=== PATIENT | female | born 1935 | race Caucasian/White ===

== ENCOUNTER 2016-09-07 12:02 | Inpatient (IN) | payer MEDICARE, BC ==
[~2016-09-07] VITALS: Ht 167.6 cm; Wt 56.7 kg
[~2016-09-07 12:02] MED LIST: AMBIEN5 MG PO; ARICEPT5 MG PO; BENADRYL25 M1 PO; BENADRYL25 MG PO; COLACE100 MG PO; COREG6.25 MG PO; DULCOLAX10 MG/SUPP RC; HYDROCODON-ACE1 EAC6 PO; ISOSORBIDE MONO30 M1 PO; MIRALAX17 GM PO; NORCO 10/325 TA1 TA1 PO; NORCO 5/325 TAB1 TA1 PO; OMNICEF300 MG PO; OSTEO BI-FLEX1 EAC1 PO; PRILOSEC20 MG PO; PROBIOTIC PO; PROTONIX40 MG PO; PROVENTIL HFA6.7 GM INH; SENOKOT-S TABLE1 TAB PO; VITAMIN D3400 UNI1 PO; XALATAN 0.0052.5 ML EACH EYE; ZITHROMAX TRI-500 MG; ZOFRAN4 MG PO; ZPAK PO
[2016-09-07 13:19] LABS: HEMATOCRIT 38.9 % (36.0-48.0); MCH 31.3 pg (26.0-34.0); MCHC 33.4 g/dL (31.0-37.0); MCV 93.5 fL (80.0-100.0); MEAN PLATELET VOLUME 10.8 fL (7.4-10.4); PLATELET COUNT 114 10x3/uL (130-400); RBC 4.16 10x6/uL (4.00-5.40); RDW 13.2 % (11.5-14.5)
[2016-09-07 13:36] LABS: ALBUMIN 3.8 g/dL (3.4-5.0); ANION GAP 14.7 mmol/L (8-16); BILIRUBIN - TOTAL 0.91 mg/dL (0.2-1.3); CALCIUM 9.3 mg/dL (8.5-10.1); CARBON DIOXIDE 23.7 mmol/L (21.0-32.0); CREATININE - SERUM 1.3 mg/dL (0.6-1.3); POTASSIUM - SERUM 4.4 mmol/L (3.5-5.1); PROTEIN - SERUM 7.2 g/dL (6.4-8.2)
[2016-09-07 13:45] LABS: WBC 1.3 10x3/uL (4.8-10.8)
[2016-09-07 14:26] LABS: ANISOCYTOSIS OCC; HYPOCHROMASIA OCC; LYMPHOCYTES 35 % (15-50); MONOCYTES 1 % (2-11); NEUTROPHILS 62 % (40-80); PLATELET ESTIMATE NORMAL
[2016-09-07 16:02] LABS: BASOPHILS 0.5 % (0.0-2.0); EOSINOPHILS 0.5 % (0-7); HEMATOCRIT 34.2 % (36.0-48.0); HEMOGLOBIN 11.3 g/dL (12-16); IMMATURE GRANULOCYTES 0.5 % (0-5); LYMPHOCYTES 5.4 % (15-50); MCH 30.9 pg (26.0-34.0); MCV 93.4 fL (80.0-100.0); MEAN PLATELET VOLUME 11.3 fL (7.4-10.4); MONOCYTES 0.5 % (2-11); NEUTROPHILS 92.6 % (40-80); PLATELET COUNT 128 10x3/uL (130-400); RBC 3.66 10x6/uL (4.00-5.40); RDW 13.2 % (11.5-14.5)
[2016-09-07 16:05] LABS: WBC 2.1 10x3/uL (4.8-10.8)
[2016-09-07 16:49] LABS: APPEARANCE HAZY (CLEAR); BILIRUBIN NEGATIVE (NEGATIVE); COLOR YELLOW (YELLOW); GLUCOSE NEGATIVE (NEGATIVE); KETONE NEGATIVE (NEGATIVE); LEUKOCYTE ESTERASE TRACE (NEGATIVE); NITRITE NEGATIVE (NEGATIVE); PROTEIN TRACE mg/dL (NEGATIVE); RED CELLS - URINE >50 /hpf (0-5); UROBILINOGEN NORMAL (NORMAL); WHITE CELLS - URINE 0-5 /hpf (0-5)
[2016-09-07 16:50] LABS: BACTERIA MANY /hpf (NONE SEEN)
--- NOTE | 2016-09-07 18:41 | NUR ---
PATIENT ASSISTED TO BED AT THIS TIME WITH ASSIST. NO COMPLAINTS AT THIS TIME. IV INTACT. CALL LIGHT WITHIN REACH.
--- NOTE | 2016-09-07 18:45 | NUR ---
RECEIVED TO ROOM 2213 VIA STRETCHER FROM ER. A/O X3. FAMILY AT BEDSIDE. C/O HARD TO BREATHE AND LEFT SHOULDER PAIN. DR.. LEBLANC HERE AT THIS TIME.
--- NOTE | 2016-09-07 20:00 | NUR ---
PATIENT IN BED WITH EYES CLOSED. AROUSES TO VOICE. ORIENTED X4. RR EVEN AND UNLABORED. 0 S/S OF DISTRESS BUT WEAK. IV TO RIGHT AC SL WITH NO REDNESS OR SWELLING. STATES PAIN IS A 5/10. AT BEDSIDE. SRX2. BED LOW. CALL LIGHT WITHIN REACH.
--- NOTE | 2016-09-07 23:05 | NUR ---
INITIATED FLUIDS AND IV ANTIBIOTICS PER ORDER. ADMIT COMPLETE. PAGED DR. ZUNIGA FOR NORCO AND MELATONIN PER PATIENT REQUEST.
[2016-09-07 23:32] VITALS: BP 69/34; BMI 19.5
[2016-09-08] VITALS (46 sets, daily range): BP systolic 63–131; BP diastolic 34–93; Ht 167.6 cm; Wt 56.7 kg
--- NOTE | 2016-09-08 00:30 | NUR ---
NORCO GIVEN FOR PAIN PER TELEPHONE ORDER. WAITING ON HEAD RESIDENT TO PULL MELATONIN. PATIENT STATED THAT SHE DOES NOT CARE TO HAVE IT IF SHE IS ASLEEP WHEN IT GETS PULLED.
--- NOTE | 2016-09-08 04:00 | NUR ---
MELATONIN NOT GIVEN. PATIENT SLEEPING WITH NO DISTRESS NOTED.
--- NOTE | 2016-09-08 05:30 | NUR ---
SITED SECOND IV TO RIGHT FA BECAUSE PATIENT NPO AND MULTIPLE ELECTROLYTES NEED TO BE REPLACED.
[2016-09-08 06:04] LABS: BILIRUBIN - TOTAL 0.59 mg/dL (0.2-1.3); CALCIUM 7.9 mg/dL (8.5-10.1); CARBON DIOXIDE 22.4 mmol/L (21.0-32.0); MAGNESIUM - SERUM 1.4 mg/dL (1.8-2.4); PHOSPHOROUS 2.4 mg/dL (2.5-4.9); PROTEIN - SERUM 5.5 g/dL (6.4-8.2)
[2016-09-08 06:05] LABS: ALBUMIN 2.7 g/dL (3.4-5.0); ANION GAP 14.1 mmol/L (8-16); CREATININE - SERUM 1.9 mg/dL (0.6-1.3); POTASSIUM - SERUM 3.5 mmol/L (3.5-5.1)
[2016-09-08 06:08] LABS: BASOPHILS 0 % (0.0-2.0); EOSINOPHILS 0 % (0-7); HEMATOCRIT 31.3 % (36.0-48.0); HEMOGLOBIN 10.4 g/dL (12-16); IMMATURE GRANULOCYTES 0.4 % (0-5); LYMPHOCYTES 2.7 % (15-50); MCH 30.8 pg (26.0-34.0); MCHC 33.2 g/dL (31.0-37.0); MCV 92.6 fL (80.0-100.0); MEAN PLATELET VOLUME 11.7 fL (7.4-10.4); MONOCYTES 5.5 % (2-11); NEUTROPHILS 91.4 % (40-80); RBC 3.38 10x6/uL (4.00-5.40); RDW 13.7 % (11.5-14.5)
[2016-09-08 06:12] LABS: PLATELET COUNT 100 10x3/uL (130-400); WBC 16.7 10x3/uL (4.8-10.8)
--- NOTE | 2016-09-08 07:15 | NUR ---
UP IN CHAIR PER RACHAEL CRUZ AT THIS TIME. AT BEDSIDE. PT ALERT TO SELF, PLACE AND SITUATION. RESPIRATIONS EVEN AND NON LABORED. ASSISTED PT TO BEDSIDE COMMODE WHERE SHE HAD A MEDIUM SIZE BM WITHOUT DIFFICULTY. GAIT IS VERY WEAK AND UNSTEADY AND REQUIRES 2 PERSON ASSIST FOR TRANSFER. APPLIED OXYGEN 2L FOR OXYGEN SATURATION OF 89% ON ROOM AIR. OXYGEN SATURATION OSCAR TO 95% ON 2L VIA NC.
--- NOTE | 2016-09-08 07:45 | NUR ---
DR LEBLANC ROUNDING AT THIS TIME. ASKED HIM IF HE WANTED TO CONTINUE NEUTROPENIC PRECAUTIONS BECAUSE WHITE COUNT WENT FROM 1.3 ON ADMISSION TO 16.7 TODAY. HE STATED TO WAIT UNTIL SHE IS SEEN BY INFECTIOUS DISEASE. WAS ASKED BY DR LEBLANC HOW PT WAS DOING AND I EXPLAINED TO HIM THAT I HAD NOT HAD A CHANCE TO REVIEW THE CHART OTHER THAN LAB WORK, SO I WAS NOT EXACTLY SURE BUT JUST BY ASSESSMENT PT APPEARS VERY SICK AND IS COMPLAINING OF DIZZINESS. ALSO EXPLAINED THAT I HAD TO PLACE THE PATIENT ON 2L VIA NC. WAS ASKED IF PT HAS HAD HER CT AND I TOLD HIM ONCE AGAIN THAT I HAD YET TO HAVE A CHANCE TO LOOK THROUGHT THE CHART.
--- NOTE | 2016-09-08 08:19 | HP ---
PATIENT: YAMINI ZHAO MEDICAL RECORD: [id number] ACCOUNT: [id number] LOCATION:D.MS [id number] : 36 ADMISSION DATE: 09/07/16 HISTORY AND PHYSICAL EXAMINATION HISTORY OF PRESENT ILLNESS: An 81-year-old female presented to the Emergency Room with nausea and vomiting. She spiked a temperature greater than 101 on the ER. She was also found to be neutropenic. She has a history of episodic pancytopenia, also, past medical history of pulmonary mycobacterial infection and aspergillosis. She has been followed in the past by electric melt operator in [place]. She has also had a previous lung biopsy, also history of GERD, pneumonia, back surgery, recent fall with shoulder fracture, hysterectomy, left hip fracture, mitral valve prolapse, heart disease and dementia. CURRENT MEDICATIONS: Aricept 5 mg daily, Coreg 6.25 mg b.i.d., isosorbide mononitrate 30 mg daily, Xalatan eyedrops, Prilosec 20 mg daily, vitamin D 400 units daily, chondroitin and glucosamine. ALLERGIES: REPORTED NIACIN, ERYTHROMYCIN, KETOROLAC, ____. REVIEW OF SYSTEMS: GENERAL: No known change in weight or appetite. She does admit to acute nausea and vomiting with her presentation to the Emergency Room today. HEENT: No cephalgia, visual changes, tinnitus, epistaxis or dysphagia. CARDIOVASCULAR: Denies chest pain and denies palpitations. PULMONARY: Denies hemoptysis and denies night sweats. GASTROINTESTINAL: Denies hematemesis, hematochezia or melena. She does admit to acute nausea and vomiting. GENITOURINARY: Admits dysuria. MUSCULOSKELETAL: No acute changes. ENDOCRINE: Denies polyuria, polydipsia, or polyphagia. PHYSICAL EXAMINATION: VITAL SIGNS: Temp 97.8. Again, reported a temperature spike of 101+ in the Emergency Room, heart rate 67, respirations 18, blood pressure ____, O2 sats 100%. GENERAL: Alert, oriented, appears comfortable at this time. HEENT: Head: Normocephalic and atraumatic. Eyes: Pupils equal, round, reactive to light and accommodation. Extraocular muscles intact. Conjunctiva was not injected. Ears: Canals patent, TMs are intact. Nose: Nares patent without drainage. Throat: No erythema, no exudates. NECK: Supple. No lymphadenopathy, no JVD. HEART: Regular rate and rhythm. No S3, S4, no rub. LUNGS: Clear to auscultation bilaterally. Breathing is nonlabored. ABDOMEN: Soft and nontender. Bowel sounds all 4 quadrants. EXTREMITIES: Present times 4, no edema. NEUROLOGIC: No appreciable focal deficits. LABORATORY DATA: Lactate dehydrogenase 268. Urinalysis: Yellow, hazy, trace protein, 1+ blood, trace leukocyte esterase, rbc's greater than 50 per high power field, many bacteria. Culture pending. CBC: White count 2.1, hemoglobin 11.3, hematocrit 34.2, platelets 128 and neutrophils 92.6%. Blood cultures pending. This was a repeat CBC, the original one showed a white count of 1.3. Chemistry shows sodium 142, potassium 4.4, chloride 108, bicarb 23.7, BUN 27, creatinine 1.3 and glucose 111. AST 26 and ALT 21. Chest x-ray: Bilateral HISTORY AND PHYSICAL [id number] YAMINI ZHAO lower lobe airspace disease suggestive of atelectasis versus pneumonia and emphysema. ASSESSMENT AND PLAN: 1. Febrile neutropenia. The patient is admitted, reverse isolation, we will consult pulmonology and infectious disease and start IV antibiotics empirically. 2. Dysuria. Antibiotics as above. Urine culture. 3. Nausea and vomiting. IV fluids and Zofran p.r.n. 4. History of aspergillosis and Mycobacterium. Pulmonology is consulted. We will also obtain CT of the chest with IV contrast. TRANSINT:[id number] Voice Confirmation ID: [id number] DOCUMENT ID: [id number] ROBINSON LEBLANC DO at 0819 CC: [id number] DICTATION DATE: 09/07/161900 INFORMATICS PHYSICIAN LIAISON: 09/07/162044 ADM IN [address] [place] [address]
--- NOTE | 2016-09-08 08:55 | NUR ---
SCHEDULED MEDICATIONS ADMINISTERED AT THIS TIME. ELECTROLYTE PROTOCOL INITIATED PER ORDER. ASSESSMENT PERFORMED PER FLOWSHEET. COREG AND IMDUR HELD FOR BP, SEE FLOWSHEET. PT IS VERY WEAK AND COMPLAINING OF DIZZINESS. PT'S LEGS ELEVATED IN RECLINER CHAIR AT THIS TIME. WILL NOTIFY DR LEBLANC.
--- NOTE | 2016-09-08 09:30 | NUR ---
DR LEBLANC NOTIFIED ABOUT CLINICAL FINDINGS BY TAYLOR NORIEGA RN. NEW ORDERS GIVEN.
--- NOTE | 2016-09-08 10:18 | NUR ---
1L BOLUS OF NS INITIATED AT THIS TIME. BP 76/43 AND PULSE 95 AND REGULAR. PT IS ALERT AND ORIENTED TO SELF AND PLACE. C/O OF LIGHTHEADEDNESS AND WEAKNESS. PT ASSISTED BACK TO BED X3 ASSIST. PT'S GAIT VERY UNSTEADY. LYING SUPINE WITH FOOT OF BED ELEVATED HIGH IT GOES. 20G IV SITED TO PT'S LEFT WRIST. 22G IV X2 REMAIN PATENT TO PT'S RIGHT WRIST AND AC. REMAINS IN ISOLATION PER PHYSICIAN. WILL REMAIN WITH PT.
--- NOTE | 2016-09-08 11:30 | NUR ---
PT RECIEVED TO ICU BP 88/60. TEMP 98.1. LACTID ACID 3.3 DR LEBLANC CALLED NEW ORDERS OBTAINED. DR HOROWITZ CONSULTED. DR RICO CONSULTED FOR CVL PLACEMENT. PT VOICES NO CO AT TIME.
[2016-09-08 12:10] LABS: CKMB 2.2 U/L (0.0-3.6)
[2016-09-08 12:11] LABS: CREATINE KINASE 863 UL (21-215); TROPONIN-I 0.155 ng/mL (0.000-0.060)
--- NOTE | 2016-09-08 19:00 | NUR ---
REPORT REC'D, ASSUMED PT'S CARE. ASSESSMENT COMPLETED PER FLOW SHEETS. PT A/O X2, CONFUSED WITH TIME. ORIENTED TO TIME. CM SHOWS SR WITH HR AT 84. LUNG SOUNDS CLEAR DIMINISHED TO LLB, UNLABORED.O2SAT 96% ON 4L VIA NC. RT SC CVL INTACT, CLEAN AND DRY INFUSING IV FLUIDS PER ORDER. LEVOPHED TITRATED TO 10MCG PER ORDER. ORDOÑEZ INTACT BY GRAVITY WITH LIGHT YELLOW DRAINAGE TO BAG. PPP. REPOSITIONED FOR COMFORT. CALL LIGHT IN REACH. HOB UP. SIDE RAILS UP X2. CONT TO MONITOR.
--- NOTE | 2016-09-08 21:00 | NUR ---
PT OOB, GIVES SELF BATH AND SHAVE AND ORAL CARE. DENIES ANY DISCOMFORT AT THIS TIME. VSS. CALL LIGHT IN REACH. CPOC.
--- NOTE | 2016-09-08 21:00 | NUR ---
AT BEDSIDE. UPDATED.
--- NOTE | 2016-09-08 23:00 | NUR ---
REASSESSMENT COMPLETED PER FLOW SHEETS. NO ACUTE CHANGES NOTED ON PT'S STATUS. TITRATED LEVOPHED TO 8MCG/MIN PER ORDER FOR SBP> 90. REPOSITIONED FOR COMFORT. NO COMPLAINTS AT THIS TIME. CALL LIGHT IN REACH. CPOC.
[2016-09-09] VITALS (43 sets, daily range): BP systolic 99–145; BP diastolic 52–92
--- NOTE | 2016-09-09 01:00 | NUR ---
PT BATH GIVEN, LINEN CANGHED, SKIN CARE PROVIDED, ORDOÑEZ CARE.REPOSITIONED FOR COMFORT. PILLOWS IN USE FOR SUPPORT. CALL LIGHT IN REACH. CPOC
[2016-09-09 05:37] LABS: BASOPHILS 0.1 % (0.0-2.0); EOSINOPHILS 0 % (0-7); HEMOGLOBIN 9.7 g/dL (12-16); IMMATURE GRANULOCYTES 7.4 % (0-5); LYMPHOCYTES 5.3 % (15-50); MCH 30.8 pg (26.0-34.0); MCHC 33.4 g/dL (31.0-37.0); MCV 92.1 fL (80.0-100.0); MEAN PLATELET VOLUME 11.7 fL (7.4-10.4); MONOCYTES 4.1 % (2-11); NEUTROPHILS 83.1 % (40-80); PLATELET COUNT 82 10x3/uL (130-400); RBC 3.15 10x6/uL (4.00-5.40); RDW 13.6 % (11.5-14.5); WBC 19.1 10x3/uL (4.8-10.8)
[2016-09-09 05:44] LABS: ALBUMIN 2.3 g/dL (3.4-5.0); ANION GAP 11.6 mmol/L (8-16); BILIRUBIN - TOTAL 0.56 mg/dL (0.2-1.3); CALCIUM 7.4 mg/dL (8.5-10.1); CARBON DIOXIDE 25.7 mmol/L (21.0-32.0); MAGNESIUM - SERUM 1.4 mg/dL (1.8-2.4); POTASSIUM - SERUM 3.3 mmol/L (3.5-5.1)
[2016-09-09 05:52] LABS: CREATININE - SERUM 1.2 mg/dL (0.6-1.3)
[2016-09-09 06:24] LABS: PLATELET ESTIMATE DECREASED
--- NOTE | 2016-09-09 07:05 | NUR ---
REPORT RECEIVED. PATIENT IN SEMIFOWLERS POSITION, EYES CLOSED, OPENED EYES WHEN SPOKEN TO. ASSESSMENT COMPLETED AT THIS TIME. C/O BEING COLD, WARM BLANKET OBTAINED FOR HER AND HEATER TURNED UP IN ROOM. ALSO C/O HOW UNCOMFORTABLE THE BED WAS. OFFERED TO ASSIST WITH CHANGING POSITIONS, PATIENT WAS TURNED TO THE LEFT, NOW ON BACK. STATED THAT THE CHANGE IN POSITION DID NOT HELP ANY BUT DENIED CHANGING POSITIONS AGAIN OR GETTING UP TO A CHAIR. CONTACT ISOLATION IS BEING OBSERVED.
--- NOTE | 2016-09-09 09:01 | NUR ---
GOT PATIENT UP TO BSC AND TO SIT IN CHAIR FOR A BIT. 2 LARGE LOOSE STOOLS DURING THIS PROCESS. PATIENT FELT SHE WAS TO WEAK TO STAY UP. PUT BACK IN BED. CVP LINE ZEROED. READING ZERO. 500 ML BOLUS STARTED.
[2016-09-09 09:04] LABS: CKMB 0.8 U/L (0.0-3.6); TROPONIN-I 0.233 ng/mL (0.000-0.060)
--- NOTE | 2016-09-09 09:35 | NUR ---
PATIENT HAS HAD 5 STOOLS SINCE 0800 THIS MORNING. SPOKE WITH DR LEBLANC, NEW ORDERS RECEIVED.
--- NOTE | 2016-09-09 09:41 | NUR ---
Is the patient Alert and Oriented? Yes 0 * How many steps to enter\exit or inside your home? 1 0 * PCP DR. OSBORNE 0 * Pharmacy [facility] [address] 0 * Preadmission Environment Home with Family 0 * ADLs Independent 0 * Equipment Cane Rolling Walker Wheelchair 0 * Other Equipment PATIENT STATES SHE HAS ABOVE EQUIPMENT EVEN THOUGH SHE DOES NOT USE THEM 0 * List name and contact numbers for known caregivers / representatives who currently or will assist patient after discharge: SPOUSE: VIOLET [phone] 0 * Community resources currently utilized None 0 * Additional services required to return to the preadmission environment? No 0 * Can the patient safely return to the preadmission environment? Yes 0 * Has this patient been hospitalized within the prior 30 days at any hospital? No 0 PATIENT IS AWAKE AND ALERT. SHE STATES SHE LIVES AT HOME WITH HER , VIOLET. SHE STATES HE ASSIST HER NEEDED AT HOME BUT THAT SHE IS INDEPENDENT. PATIENT STATES HE WILL BE AVAILABLE TO DRIVE HER HOME AT DISCHARGE. HER PCP IS DR. OSBORNE. SHE GETS HER MEDS FROM [facility]. PATIENT STATES IN 2014 SHE HAD BACK SURGERY AND SERVICES FROM [facility]. PATIENT STATES SHE HAS A WALKER, CANE AND W/C BUT DOES NOT USE THEM. SHE STATES THERE IS ONLY 1 STEP TO ENTER HER HOME. NO DISCHARGE NEEDS IDENTIFIED AT THIS TIME. PATIENT'S PREFERENCE IS TO RETURN HOME AT DISCHARGE. SHE MAY BENEFIT FROM HOME HEALTH.
--- NOTE | 2016-09-09 10:00 | NUR ---
PATIENTS CVP BOUNCING BETWEEN 5 AND 8. WILL RUN ANOTHER BOLUS IF IF REMAINS BELOW 8 PER ORDERS.
--- NOTE | 2016-09-09 10:20 | NUR ---
Nutrition follow-up: Diet: Clear liquids Wt: 121# Labs reviewed Multiple BM's If diet unable to advance past clears within 24 hours, nutrition support will need to begin. RDN following.
--- NOTE | 2016-09-09 10:52 | NUR ---
CVP DOWN TO 3. SECOND BOLUS OF NORMAL SALINE STARTED PER ORDERS.
--- NOTE | 2016-09-09 11:11 | CN ---
PATIENT NAME:YAMINI CHACKO MEDICAL RECORD: [id number] : 37 LOCATION:[id number] ADMIT DATE: 09/07/16 ACCOUNT: [id number] CONSULTING PHYSICIAN: LEDY SIERRA MD REFERRING PHYSICIAN: ROBINSON LEBLANC DO DATE OF CONSULTATION: 09/08/2016 Cardiology Consultation DIAGNOSES: 1. Elevated troponin. 2. Septic shock. HISTORY OF PRESENT ILLNESS: Mrs. Chacko has no previous cardiac history. She presents with septic shock, found to have elevated troponin. She has no chest pain, no chest discomfort. She has history of a shoulder fracture, that is the only discomfort she has, is around the shoulder area, but this is old. Her systolic blood pressure is in the 60s-70s despite pressors. PHYSICAL EXAMINATION: GENERAL APPEARANCE: Well-nourished, well-developed, appears stated age. Level of distress, comfortable. PSYCHIATRIC: Mental status, alert, normal affect. Orientation, oriented to time, place and person. EYES: Lids and conjunctiva, noninjected. No discharge, no pallor. ENT: Lips, teeth, gums, normal dentition. Oropharynx, no cyanosis, no pallor. NECK: Carotid arteries, bilateral normal upstroke, no bruits, no thrills. JUGULAR VEINS: No jugular venous pressure or distention. CERVICAL LYMPH NODES: Nontender, nonenlarged. THYROID: Not enlarged. Nontender. No nodules. LUNGS: Respiratory effort, unlabored. CHEST: Normal curvature. No thoracic deformity. No chest wall tenderness. Percussion, resonant. Auscultation, clear. No wheezes, no rales, no rhonchi. CARDIOVASCULAR: Precordial exam, nondisplaced. No heaves or pericardial thrills. Rate and rhythm, regular. Heart sounds, normal S1, normal S2. No S3, no gallop, no rub. Systolic murmur, not heard. Diastolic murmur, not heard. EXTREMITIES: No cyanosis, no edema. Peripheral pulses, full and equal in all extremities, except as noted. No bruits appreciated. ABDOMEN: Soft, nondistended. Normal aorta. No bruit. Nontender. No masses. Liver, nontender, no hepatomegaly. Spleen, nontender, no splenomegaly. MUSCULOSKELETAL: No joint tenderness. No joint swelling. No erythema. NEUROLOGICAL: Normal gait, normal strength, normal tone. SKIN: Warm and dry. REVIEW OF SYSTEMS: The patient reports easy bruising but reports no swollen glands. The patient reports no fever, no night sweats, no significant weight gain, no significant weight loss. No significant exercise tolerance. The patient reports no dry eyes, no irritation, no vision change. Patient reports no difficulty hearing and no ear pain. Patient reports no frequent nose bleeds or nose and sinus problems. Patient reports on arm pain on exertion. No shortness of breath while lying down. No history of heart murmur. Patient reports no cough, no wheezing or coughing up blood. Patient reports no abdominal pain, no vomiting. Normal appetite. No diarrhea and not vomiting blood. No nausea and no constipation. Patient reports no incontinence. No difficulty urinating. No hematuria. No increased frequency. Patient reports CONSULT REPORT [id number] YAMINI CHACKO no muscle aches. No weakness, no arthralgias, no back pain. No swelling of the extremities. Patient reports no abnormal mole, no jaundice, no rashes. Reports no loss of consciousness. No weakness and no numbness. No seizures, dizziness, or headaches. The patient reports no depression, no sleep disturbance, feeling safe in a relationship and no alcohol abuse. Patient reports on fatigue. Reports no runny nose or sinus pressure. No itching, no hives, and no frequent sneezing. OVERALL IMPRESSION: Most likely elevated troponin is secondary to demand ischemia from the sepsis and the hypotension. At this time, due to her low blood pressure, no cardiac treatment is necessary. We will get an echocardiogram in the near future. No other cardiac workup is necessary. TRANSINT:[id number] Voice Confirmation ID: [id number] DOCUMENT ID: [id number] LEDY SIERRA MD at 1111 CC: [id number] DICTATION DATE: 09/08/16 1516 CRM MARKETING SPECIALIST: 09/08/16 1527 ADM IN [id number] [place] [address]
--- NOTE | 2016-09-09 11:32 | NUR ---
PATIENT IN SEMIFOWLERS POSITION WITH EYES CLOSED. NO VISUAL CUES OF DISTRESS NOTED. SPOUSE IS ASLEEP IN THE CHAIR AT BEDSIDE. SECONDARY TO SPOUSES DEMENTIA, HE IS BEING ALLOWED TO REMAIN AT BEDSIDE.
--- NOTE | 2016-09-09 11:38 | NUR ---
PATIENT REQUESTING SOMETHING WITH A LITTLE SUBSTANCE, BUT NOT HEAVY TO EAT. SPOKE WITH DR LEBLANC AND NEW ORDER RECEIVED FOR FULL LIQUID DIET.
--- NOTE | 2016-09-09 12:12 | NUR ---
THIRD BOLUS STARTED SECONDARY TO CVP REMAINING AROUND 4. WILL CONTINUE TO MONITOR.
--- NOTE | 2016-09-09 13:48 | NUR ---
PATIENTS CVP IS 5, FOURTH BOLUS STARTED.
--- NOTE | 2016-09-09 13:49 | NUR ---
PATIENTS LUNGS REMAIN CLEAR. THERE IS NO EDEMA NOTED. WITH AMOUNT OF BOLUSES, WILL KEEP AN EYE ON THIS.
--- NOTE | 2016-09-09 14:01 | NUR ---
SPOKE WITH DR HOROWITZ ABOUT PATIENT'S CVP'S IN REGARDS TO BOLUSES. HE QUESTIONED TO WETHER HER B/P AND HR HAVE BEEN STABLE. IT WAS EXPLAINED THAT YES THEY HAVE BEEN . AT THIS TIME HE SAID THAT THERE WAS NO NEED TO CONTINUE BOLUSING PATIENT TO JUST KEEP THE MAINTANCE FLUIDS GOING. PATIENTS BOLUS WAS STOPPED. PATIENT WAS ALSO CLEANED UP FOR THE 8TH TIME FROM WATERY STOOL. WILL DISCUSS THIS WITH DR YORK.
--- NOTE | 2016-09-09 15:52 | NUR ---
PATIENT IS SUPINE WITH EYES CLOSED, NO VISUAL CUES OF DISTRESS NOTED. SPOUSE IS SLEEPING IN CHAIR AT BEDSIDE. CALL LIGHT IN REACH. WILL CONINTUE TO MONITOR.
--- NOTE | 2016-09-09 18:09 | NUR ---
PATIENTS STOOL HAS SLOWED DOWN CONSIDERABLY. SHE IS ABLE TO ASK FOR THE BEDPAN NOW AND HOLD IT UNTIL SHE IS ON THE BEDPAN. SPOUSE REMAINS IN THE ROOM. HIS DAUGHTER SHOULD BE HERE SHORTLY TO TAKE HIM HOME. PATIENT DENIES NEEDS.
--- NOTE | 2016-09-09 19:10 | NUR ---
ASSESSMENT COMPLETE, SEE FLOWSHEET FOR DETAILS. CVP ZEROED. PATIENT HAD SMALL LIQUID BOWEL MOVEMENT. LINENS CHANGED.
--- NOTE | 2016-09-09 20:30 | NUR ---
PATIENT HAD SMALL LIQUID BOWEL MOVEMENT. LINENS CHANGED.
--- NOTE | 2016-09-09 23:00 | NUR ---
REASSESSMENT COMPLETE. NO CHANGES. LINENS CHANGED.
[2016-09-10] VITALS (22 sets, daily range): BP systolic 112–154; BP diastolic 68–101
--- NOTE | 2016-09-10 03:00 | NUR ---
REASSESSMENT COMPLETE. NO CHANGES. PATIENT HAVING SEVERAL SMALL BOWEL MOVEMENTS PER HOUR. LINENS CHANGED.
[2016-09-10 05:26] LABS: BASOPHILS 0.1 % (0.0-2.0); EOSINOPHILS 0.5 % (0-7); HEMATOCRIT 30.4 % (36.0-48.0); HEMOGLOBIN 10.3 g/dL (12-16); IMMATURE GRANULOCYTES 0.5 % (0-5); LYMPHOCYTES 5.9 % (15-50); MCHC 33.9 g/dL (31.0-37.0); MCV 91.6 fL (80.0-100.0); MEAN PLATELET VOLUME 12.7 fL (7.4-10.4); MONOCYTES 3.2 % (2-11); NEUTROPHILS 89.8 % (40-80); PLATELET COUNT 65 10x3/uL (130-400); RBC 3.32 10x6/uL (4.00-5.40); RDW 13.5 % (11.5-14.5); WBC 17.1 10x3/uL (4.8-10.8)
[2016-09-10 05:39] LABS: CALCIUM 7.4 mg/dL (8.5-10.1); CARBON DIOXIDE 27.1 mmol/L (21.0-32.0); MAGNESIUM - SERUM 1.4 mg/dL (1.8-2.4); PHOSPHOROUS 1.7 mg/dL (2.5-4.9); POTASSIUM - SERUM 3.1 mmol/L (3.5-5.1)
[2016-09-10 05:42] LABS: INR 1.21 (0.85-1.17); PROTIME 15.2 SECONDS (11.6-15.0)
--- NOTE | 2016-09-10 19:35 | NUR ---
SHIFT ASSESSMENT COMPLETE AT THIS TIME, PATIENT IS ALERT AND ORIENTED. DENIES ANY PAIN AT THIS TIME. NC @ 2L WITH O2 SAT IN HIGH 90'S. BREATHING IS EVEN AND NONLABORED. S1S2 NOTED. BOWEL SOUNDS HYPERACTIVE, PATIENT HAVING LIQUID STOOLS. ORDOÑEZ DRAINING CLEAR YELLOW URINE. SEE FLOWSHEET FOR MORE DETAILS.
--- NOTE | 2016-09-10 19:40 | NUR ---
0715-RECIEVED AWAKE AND CRYING STATING-MY CHEST HAS HURT ALL NIGHT AND I CAN'T BREATHE AND I NEED TO BE CLEANED UP-DR OSBORNE NOTIFIED OF CHEST PAIN AND DIFFICULTY BREATHING-HOME MED COREG GIVEN ORDERED-O2 SAT 97%-12 LEAD EKG ORDERED DIRECTED 0800-DR NUNEZ IN UNIT AND INFORMED OF PT COMPLAINT-12 LEAD EKG GIVEN-NO FURTHER ORDERS AT THIS TIME 0900-HOME MED IMDUR RESTARTED-DR OSBORNE AT [facility]-CONFIRMED WITH POT ROOM SUPERVISOR-DOES WANT AN AIROVERLAY ORDERED -NINO-DAUGHTER AND AT [facility] AND SPOKE WITH DR OSBORNE 1130- LEFT UNIT-PT INCONTINENT OF LIQUIED STOOL-SKIN CARE DONE AND INTACT- 1330-DR HOROWITZ IN UNIT -ORDER RECIEVED--D/C BICARB DRIPP AND DECREASE PRIMARY FLOW RATE TO 50ML/H-REMAINS ON 2L 1400-AIR OVERLAY PLACED ON BED -TOLERATED WELL BY PT 1530- AT [facility]- 1630-DR HOLM AT [facility]-
--- NOTE | 2016-09-10 21:00 | NUR ---
MEDS GIVEN, PATIENT COMPLAINING OF "SPLITTING HEADACHE" TYLENOL GIVEN.
--- NOTE | 2016-09-10 21:30 | NUR ---
PATIENT HAD SMALL LIQUID BOWEL MOVEMENT. SHEETS/GOWN CHANGED. PATIENT CLEANED UP.
--- NOTE | 2016-09-10 23:00 | NUR ---
REASSESSMENT COMPLETE. NO ACUTE CHANGES. PATIENT HAD SMALL BOWEL MOVENT. LINENS CHANGED AND PT CLEANED.
[2016-09-11] VITALS (24 sets, daily range): BP systolic 104–159; BP diastolic 72–103
--- NOTE | 2016-09-11 | NUR ---
PATIENT HAD SMALL WATERY BM. PT CLEANED AND LINEN CHANGED.
--- NOTE | 2016-09-11 01:30 | NUR ---
PATIENT HAD ANOTHER SMALL WATERY BM. LINENS CHANGED AND PT CLEANED.
--- NOTE | 2016-09-11 04:00 | NUR ---
LINENS CHANGED, PATIENT CLEANED AND TURNED. VSS. WILL CONTINUE TO MONITOR.
--- NOTE | 2016-09-11 05:30 | NUR ---
PT DENIES NEED. VSS. WILL CONTINUE TO MONITOR.
[2016-09-11 05:40] LABS: BASOPHILS 0.2 % (0.0-2.0); EOSINOPHILS 2.1 % (0-7); HEMATOCRIT 28.9 % (36.0-48.0); HEMOGLOBIN 9.8 g/dL (12-16); IMMATURE GRANULOCYTES 0.4 % (0-5); LYMPHOCYTES 10.7 % (15-50); MCH 30.6 pg (26.0-34.0); MCHC 33.9 g/dL (31.0-37.0); MCV 90.3 fL (80.0-100.0); MONOCYTES 6.6 % (2-11); RDW 13.3 % (11.5-14.5)
[2016-09-11 05:41] LABS: PLATELET COUNT 85 10x3/uL (130-400); WBC 10.7 10x3/uL (4.8-10.8)
[2016-09-11 05:57] LABS: ALBUMIN 2.1 g/dL (3.4-5.0); ANION GAP 8.8 mmol/L (8-16); BILIRUBIN - TOTAL 0.7 mg/dL (0.2-1.3); CALCIUM 7.3 mg/dL (8.5-10.1); CARBON DIOXIDE 26.5 mmol/L (21.0-32.0); CREATININE - SERUM 0.8 mg/dL (0.6-1.3); MAGNESIUM - SERUM 1.5 mg/dL (1.8-2.4); PHOSPHOROUS 1.7 mg/dL (2.5-4.9); POTASSIUM - SERUM 3.3 mmol/L (3.5-5.1); PROTEIN - SERUM 4.6 g/dL (6.4-8.2)
--- NOTE | 2016-09-11 14:40 | NUR ---
Nutrition follow-up: Received verbal order from Dr. Gibbs to begin TPN today due to pt with continued profuse diarrhea, nausea, distended abdomen with C.Diff. Labs reviewed. Order sent to lab for D25W,4.25%AA @ 40 ml/hr. RDN will evaluate pt 09/12 and adjust TPN if needed. Thank you for the consult.
--- NOTE | 2016-09-11 19:30 | NUR ---
ASSESSMENT COMPLETE. S1S2. RR CLEAR BILATERALLY IN UPPER LOBES; DIMINISHED BILATERALLY IN LOWER LOBES. RADIAL/PEDAL PULSES PALPATED. AAO. RIGHT CVL; PATENT. NSR SHOWING ON MONITOR. PT ON AIR OVERLAY. ORDOÑEZ IN PLACE; ADELSO URINE IN COLLECTION.
--- NOTE | 2016-09-11 20:31 | NUR ---
0715-RECIEVED AWAKE AND ALERT AIR BREAKER OPERATOR LIGHT-STATING NAUSEATED ALL CPDZN-[id number] TELLING ANY ONE-BREAKFEST TRAY HELD TIL FURTHER ASSESSED BY DR OSBORNE 0830 0930-REQUESTING MEAL-STATED STILL NAUSEATED-INFORMED PT WILL WAIT ON MD TO ASSESS 1030-DR OSBORNE AT BEDSIDE-INFORMED OF CONSTANT HEADACHE AND NECK [id number]-[id number] OF NAUSEA-HELD BREAK FEST TRAY - AT BEDSIDE- 1130- 1230-DR HOLM AT BEDSIDE-INFORMED OF DR OSBORNE REQUEST FOR TPN NUTRITION 1300-DR OSBORNE INFORMED OF SAME-AND REQUESTED TO HAVE DIETITION ORDER TPN -Aaron GREENCAMPOS NOTIFIED OF SAME 1600-TPN STARTED ORDERED -ZOFRAN GTT STARTED ORDERED AND PT ASLEEP
--- NOTE | 2016-09-11 21:15 | NUR ---
PT RESTING; EYES CLOSED. NO DISTRESS NOTED. CALL LIGHT IN REACH. WILL CONTINUE TO MONITOR.
--- NOTE | 2016-09-11 23:00 | NUR ---
REASSESSMENT COMPLETE. NO CHANGES FROM PREVIOUS ASSESSMENT. SEE FLOW SHEET FOR DETAILS.
[2016-09-12] VITALS (24 sets, daily range): BP systolic 116–162; BP diastolic 66–94
--- NOTE | 2016-09-12 01:00 | NUR ---
PT REFUSED TO BE TURNED ON SIDE, STATING "NOT COMFORTABLE, CANNOT SLEEP ON SIDE."
--- NOTE | 2016-09-12 03:00 | NUR ---
REASSESSMENT COMPLETE. NO CHANGES FROM PREVIOUS ASSESSMENT. SEE FLOW SHEET FOR DETAILS.
--- NOTE | 2016-09-12 04:00 | NUR ---
I/O COLLECTED. LABS DRAWN.
[2016-09-12 05:09] LABS: BASOPHILS 0.2 % (0.0-2.0); EOSINOPHILS 3.5 % (0-7); HEMATOCRIT 28.5 % (36.0-48.0); HEMOGLOBIN 9.8 g/dL (12-16); IMMATURE GRANULOCYTES 0.2 % (0-5); LYMPHOCYTES 14.9 % (15-50); MCH 30.9 pg (26.0-34.0); MCHC 34.4 g/dL (31.0-37.0); MCV 89.9 fL (80.0-100.0); MONOCYTES 12.6 % (2-11); NEUTROPHILS 68.6 % (40-80); PLATELET COUNT 95 10x3/uL (130-400); RBC 3.17 10x6/uL (4.00-5.40); RDW 13.6 % (11.5-14.5)
[2016-09-12 05:11] LABS: WBC 6.4 10x3/uL (4.8-10.8)
[2016-09-12 05:27] LABS: ALBUMIN 2.6 g/dL (3.4-5.0); ANION GAP 10.1 mmol/L (8-16); BILIRUBIN - TOTAL 0.6 mg/dL (0.2-1.3); CALCIUM 7.4 mg/dL (8.5-10.1); CARBON DIOXIDE 26.2 mmol/L (21.0-32.0); CREATININE - SERUM 0.8 mg/dL (0.6-1.3); MAGNESIUM - SERUM 1.8 mg/dL (1.8-2.4); PHOSPHOROUS 2.1 mg/dL (2.5-4.9); POTASSIUM - SERUM 3.3 mmol/L (3.5-5.1); PRE-ALBUMIN 12.6 mg/dL (18.0-35.7); PROTEIN - SERUM 5.2 g/dL (6.4-8.2)
--- NOTE | 2016-09-12 10:15 | NUR ---
Nutrition follow-up: Diet: full liquids; however, pt with continued nausea with poor po intake at this time Labs reviewed TPN orders adjusted and sent to pharmacy RDN following.
--- NOTE | 2016-09-12 19:30 | NUR ---
ASSESSMENT COMPLETE. S1S2. NSR SHOWING ON MONITOR. RR SHALLOW. CLEAR BILATERALLY IN UPPER LOBES; DIMINISHED BILATERALLY IN LOWER LOBES. AAO. PERRLA. RADIAL/PEDAL PULSES PALPATED. SKIN PALE; THIN TRANSPARENT. BUTTOCKS REDDENED. SEE FLOW SHEET FOR DETIALS.
--- NOTE | 2016-09-12 23:15 | NUR ---
REASSESSMENT COMPLETE. NO CHANGES FROM PREVIOUS ASSESSMENT. SEE FLOW SHEET FOR DETAILS.
[2016-09-13] VITALS (23 sets, daily range): BP systolic 95–167; BP diastolic 56–109
--- NOTE | 2016-09-13 01:45 | NUR ---
LEFT WRIST, RIGHT WRIST, RIGHT AC PIV'S DC'D. CATHS INTACT. DRESSING APPLIED.
--- NOTE | 2016-09-13 03:10 | NUR ---
REASSESSMENT COMPELTE. NO CHANGES FROM PREVIOUS ASSESSMENT. SEE FLOW SHEET FOR DETAILS.
--- NOTE | 2016-09-13 04:00 | NUR ---
I/O COLLECTED. LABS DRAWN.
[2016-09-13 04:58] LABS: BASOPHILS 0.1 % (0.0-2.0); EOSINOPHILS 5.3 % (0-7); HEMATOCRIT 28.7 % (36.0-48.0); HEMOGLOBIN 9.9 g/dL (12-16); IMMATURE GRANULOCYTES 0.6 % (0-5); LYMPHOCYTES 22.9 % (15-50); MCH 31.2 pg (26.0-34.0); MCHC 34.5 g/dL (31.0-37.0); MCV 90.5 fL (80.0-100.0); MEAN PLATELET VOLUME 11.7 fL (7.4-10.4); MONOCYTES 16.1 % (2-11); PLATELET COUNT 101 10x3/uL (130-400); RBC 3.17 10x6/uL (4.00-5.40); RDW 13.6 % (11.5-14.5); WBC 6.9 10x3/uL (4.8-10.8)
--- NOTE | 2016-09-13 05:15 | NUR ---
COMPLETE BED BATH AND COMPLETE LINEN CHANGE.
[2016-09-13 05:28] LABS: ALBUMIN 2.9 g/dL (3.4-5.0); ANION GAP 9.2 mmol/L (8-16); BILIRUBIN - TOTAL 0.58 mg/dL (0.2-1.3); CALCIUM 7.8 mg/dL (8.5-10.1); CARBON DIOXIDE 28.5 mmol/L (21.0-32.0); CREATININE - SERUM 0.8 mg/dL (0.6-1.3); MAGNESIUM - SERUM 1.6 mg/dL (1.8-2.4); POTASSIUM - SERUM 3.7 mmol/L (3.5-5.1); PROTEIN - SERUM 5.6 g/dL (6.4-8.2)
--- NOTE | 2016-09-13 05:30 | NUR ---
REDDENED AREA NOTED ON INNER THIGHS.
[2016-09-13 05:32] LABS: PHOSPHOROUS 2.9 mg/dL (2.5-4.9)
--- NOTE | 2016-09-13 07:12 | NUR ---
SPOKE WITH DR. EDGE ABOUT PT CONDITION, AND PT REQUEST FOR "SOMETHING STRONGER THAN TYLENOL". PT C/O HEADACHE.
--- NOTE | 2016-09-13 08:51 | NUR ---
0900- MEDS GIVEN, PT TAKES MEDS W/O PROBLEMS. DRANK MILK AND HER OJ. DID NOT EAT.
--- NOTE | 2016-09-13 19:28 | NUR ---
REPORT RECIEVED. ASSESSMENT COMPLETE PER FLOW SHEET. REFER FOR FINDINGS. FAMILY AT BEDSIDE. GIVEN UDPATE. WILL CNTINUE TO MONITOR.
--- NOTE | 2016-09-13 21:20 | NUR ---
PT SLEEPING COMFORTABLY. VSS WILL CONTINUE TO MONITOR.
--- NOTE | 2016-09-13 23:28 | NUR ---
REASSESSMENT COMPLETE PER FLOW SHEET. VSS. NO NEW FINDINGS AT THIS TIME. PT SLEEPING COMFORTABLY. WILL CONTINUE TO MONITOR.
[2016-09-14] VITALS (25 sets, daily range): BP systolic 96–150; BP diastolic 59–95
--- NOTE | 2016-09-14 01:31 | NUR ---
PT ASSISTED ONTO BEDPAN. NO BM NOTED. VSS. WILL CONTINUE TO MONITOR.
--- NOTE | 2016-09-14 03:12 | NUR ---
REASSESSMENT COMPLETE PER FLOW SHEET. VSS. NO NEW CHANGES AT THIS TIME PT SLEEPING COMFORTABLY. WILL CONTINUE TO MONITOR.
[2016-09-14 04:13] LABS: BASOPHILS 0.3 % (0.0-2.0); EOSINOPHILS 6.3 % (0-7); HEMATOCRIT 28.1 % (36.0-48.0); HEMOGLOBIN 9.3 g/dL (12-16); IMMATURE GRANULOCYTES 0.5 % (0-5); MCH 30.1 pg (26.0-34.0); MCHC 33.1 g/dL (31.0-37.0); MCV 90.9 fL (80.0-100.0); MEAN PLATELET VOLUME 11.6 fL (7.4-10.4); MONOCYTES 14.3 % (2-11); NEUTROPHILS 55.6 % (40-80); PLATELET COUNT 112 10x3/uL (130-400); RBC 3.09 10x6/uL (4.00-5.40); RDW 13.7 % (11.5-14.5); WBC 6.2 10x3/uL (4.8-10.8)
[2016-09-14 04:26] LABS: ANION GAP 11.1 mmol/L (8-16); CARBON DIOXIDE 27.7 mmol/L (21.0-32.0); CREATININE - SERUM 0.8 mg/dL (0.6-1.3); MAGNESIUM - SERUM 1.6 mg/dL (1.8-2.4); POTASSIUM - SERUM 3.8 mmol/L (3.5-5.1)
--- NOTE | 2016-09-14 07:00 | NUR ---
REPORT RECIEVED, INITIAL ASSESSMENT COMPLETE, PLEASE SEE FLOW SHEETS FOR DETAILS. PT DID SELF FAVIAL AND ORAL CARE. COMPLAINS OF HEADACHE 06/06. DENIES ANY NEEDS AT THIS TIME. REFUSED SCD'S. BED LOW AND LOCKED, CALL LIGHT IN REACH. VSS, WILL CONTINUE TO MONITOR.
--- NOTE | 2016-09-14 08:00 | NUR ---
TPN TAKEN DOWN, HOLD PER DR OSBORNE BECAUSE PT NOT EATING REGULAR FOOD.
--- NOTE | 2016-09-14 09:00 | NUR ---
CVL DRESSING CHANGE PERFORMED USING STERILE TECHNIQUE. VSS AT THIS TIME, PT DENIES NEEDS AT THIS TIME, WILL CONTINUE TO MONITOR.
--- NOTE | 2016-09-14 09:30 | NUR ---
APPLIED MOISTUREIZER TO PT LIPS. MOVED UP IN BED AND PT STATED SHE DID NOT WANT TO BE TURNED. BED LOW AND LOCKED, CALL LIGHT IN REACH. VSS, WILL CONTINUE TO MONITOR.
--- NOTE | 2016-09-14 11:00 | NUR ---
REASSESSMENT COMPLETE, PLEASE SEE FLOW SHEETS FOR DETAILS. PT UP IN CHAIR VIA PHYSICAL THERAPY 10 MINUTES AGO. PT WANTED TO GET UP TO BEDSIDE CAMODE, DID THIS WITH MODERATE ONE PERSON ASSIST. DID FEEL DIZZINESS ONCE SITTING ON CAMODE. PT WAS GIVEN TIME AND INSTRUCTED TO TAKE SLOW DEEP BREATHS FOR THIS TO PASS, ALSO APPLIED COLD RAG TO NECK AND FOREHEAD. APPLIED LOTION TO UPPER AND LOWER EXTREMITIES. PT PROVIDED SELF TOILETING CARE POST BM. BM WAS SOFT, AND A SMALL AMOUNT, LIGHT BROWN IN COLOR. VSS AT THIS TIME, WILL CONTINUE TO MONITOR.
--- NOTE | 2016-09-14 11:47 | NUR ---
1120 DR GIL CALLED INQUIREING ABOUT PT CXR FROM THIS AM. TH REPORT MENTIONS LEFT PROXIMAL HUMOROUS FRACTURE, AND WANTED TO KNOW IF ANYTHING NEEDED TO BE DONE, WANTED DR LEBLANC CALLED TO SEE IF HE KNEW AND WHAT TO DO. 1122 DR LEBLANC PAGED AND RETURNED CALL, ASKED ABOUT FRACTURE, SAID HE DID NOT KNOW ABOUT THIS AND WANTED IT INVESTIGATED. ALSO STATED HE WANTED PT TO BE ON UNIT FOR ANOTHER NIGHT AT LEAST. 1126 SPOKE WITH XRAY ABOUT THE REPORT, THEY STATED IT WAS VALID, BUT FRACTURE WAS NOT FRESH, WAS FROM July AND THE FRACTURE IS STABLE. NO INTERVENTIONS NEEDED PER XRAY PERSONELLE. 1130 DR GIL NOTIFIED. 1150 DR LEBLANC NOTIFIED.
--- NOTE | 2016-09-14 13:00 | NUR ---
PT UP IN CHAIR, PHYSICAL THERAPY IN ROOM, GETTING PT UP AND WALKING AROUND A LITTLE, VSS AT THIS TIME, WILL CONTINUE TO MONITOR.
--- NOTE | 2016-09-14 13:06 | NUR ---
Nutrition follow-up: TPN discontinued Diet advanced to regular gastric soft Boost with meals per pt request PO intake ~50-60% at this time; expect po intake to increase when TPN stopped. Will provide food choices with selective menus and honor food preferences within diet restrictions. RDN following.
--- NOTE | 2016-09-14 15:00 | NUR ---
REASSESSMENT COMPLETE, PLEASE SEE FLOW SHEETS FOR DETAILS. ASSISTED WITH REPOSITIONING. PT DENIES ANY OTHER NEEDS AT THIS TIME. BED LOW AND LOCKED, CALL LIGHT IN REACH. VSS AT THIS TIME, WILL CONTINUE TO MONITOR.
--- NOTE | 2016-09-14 17:10 | NUR ---
PT SITTING UP IN BED EATING DINNER WITH HER AT BEDSIDE. DENIES ANY PAIN/NEEDS AT THIS TIME. BED LOW AND LOCKED, CALL LIGHT IN REACH, VSS, WILL CONTINUE TO MONITOR.
--- NOTE | 2016-09-14 19:45 | NUR ---
ASSESSMENT COMPLETE. S1S2 NSR WITH OCCASIONAL PVC'S SHOWING ON MONITOR. RR SHALLOW; CLEAR BILATERALLY IN UPPER LOBES; DIMINISHED BILATERALLY IN LOWER LOBES. AAO. PERRLA. WEAKNESS NOTED IN UPPER AND LOWER EXTREMITIES. SORES/SCABS UNDER NOSE AND AROUND MOUTH. ORDOÑEZ IN PLACE; CLEAR YELLOW URINE IN COLLECTION BAG.
--- NOTE | 2016-09-14 21:40 | NUR ---
PT VOICES NO CONCERNS AT THIS TIME. NO DISTRESS NOTED. WILL CONTINUE TO MONITOR.
--- NOTE | 2016-09-14 23:00 | NUR ---
REASSESSMENT COMPLETE. NO CHANGES FROM PREVIOUS ASSESSMENT. SEE FLOW SHEET FOR DETAILS.
[2016-09-15] VITALS (11 sets, daily range): BP systolic 113–145; BP diastolic 50–86
--- NOTE | 2016-09-15 03:00 | NUR ---
REASSESSMENT COMPLETE. NO CHANGES FROM PREVIOUS ASSESSMENT. SEE FLOW SHEET FOR DETAILS.
--- NOTE | 2016-09-15 05:00 | NUR ---
PT RESTING; NO DISTRESS NOTED. VSS. CALL LIGHT IN REACH. WILL CONTINUE TO MONITOR.
[2016-09-15 05:48] LABS: BASOPHILS 0.3 % (0.0-2.0); HEMATOCRIT 28.2 % (36.0-48.0); HEMOGLOBIN 9.8 g/dL (12-16); IMMATURE GRANULOCYTES 0.9 % (0-5); LYMPHOCYTES 21.1 % (15-50); MCH 31.2 pg (26.0-34.0); MCHC 34.8 g/dL (31.0-37.0); MCV 89.8 fL (80.0-100.0); MEAN PLATELET VOLUME 11.5 fL (7.4-10.4); MONOCYTES 13.1 % (2-11); NEUTROPHILS 54.6 % (40-80); RBC 3.14 10x6/uL (4.00-5.40); RDW 13.7 % (11.5-14.5); WBC 5.9 10x3/uL (4.8-10.8)
[2016-09-15 05:58] LABS: PLATELET COUNT 155 10x3/uL (130-400)
[2016-09-15 06:22] LABS: ALBUMIN 3.1 g/dL (3.4-5.0); ANION GAP 12.9 mmol/L (8-16); BILIRUBIN - TOTAL 0.73 mg/dL (0.2-1.3); CALCIUM 8.5 mg/dL (8.5-10.1); CREATININE - SERUM 0.8 mg/dL (0.6-1.3); MAGNESIUM - SERUM 1.8 mg/dL (1.8-2.4); PHOSPHOROUS 2.5 mg/dL (2.5-4.9); POTASSIUM - SERUM 3.9 mmol/L (3.5-5.1); PROTEIN - SERUM 5.9 g/dL (6.4-8.2)
--- NOTE | 2016-09-15 07:00 | NUR ---
REPORT RECIEVED, INITIAL ASSESSMENT COMPLETE, PLEASE SEE FLOW SHEETS FOR DETAILS. ASSISSTANCE IN REPOSITIONING PROVIDED. SELF ORAL CARE. BED LOW AND LOCKED, CALL LIGHT IN REACH. VSS AT THIS TIME, WILL CONTINUE TO MONITOR.
--- NOTE | 2016-09-15 09:00 | NUR ---
PT UP IN CHAIR WITH HELP FROM PHYSICAL THERAPY. EATING BREAKFAST. CALL LIGHT IN REACH. VSS AT THIS TIME, WILL CONTINUE TO MONITOR.
--- NOTE | 2016-09-15 11:03 | NUR ---
1000 PT PUT ON BEDPAN IN CHAIR SHE SAID SHE HAD TO HAVE A BM. 1045 CALLED AND GAVE REPORT TO EMELY CANO FOR PT TO GO TO ROOM 2140. ANSWERED ALL QUESTIONS AND WILL TRANSFER. 1050 PT TAKEN OFF BED HENAO AND WITH ASSISTANCE SAT IN WHEELCHAIR. ALL PERSONAL BELONGINGS GATHERED. 1100 PT IN NEW ROOM WITH RN IN ROOM TO RECIEVE. NO QUESTIONS AT THIS TIME. PT LEFT TO [facility].
--- NOTE | 2016-09-15 11:09 | NUR ---
PT ARRIVED TO HER ROOM ON MED 2 FLOOR. VSS. RR NONLABORED WITH NC @2L IN PLACE. PT HAS A R.SUBCLAVIAN CVL IN PLACE, DRSG CDI, BIOPATCH IN PLACE, AND SWAB CAPS IN USE. PT HAS NS @25ML/HR AND ZOFRAN @4ML/HR CURRENTLY INFUSING. PT IS ALERT AND ORIENTED. LESIONS NOTED ON HER MOUTH AREA DRY AND CRUSTED AND PT IS RECIEVING TX FOR IT. PT HAS A ORDOÑEZ IN PLACE DRAINING TO GRAVITY, STAT LOCK SECURED TO L.INNER THIGH. WILL BEGIN BLADDER TRAINING NOW R/T NO REASONING FOR ORDOÑEZ. EXPLAINED ORDOÑEZ REASONS AND BLADDER TRAININGE AND PT VERBALIZED UNDERSTANDING. PT WANTING TO CALL HER AND WAS ASSISTED WITH IT. CL IN REACH NO FURTHER NEEDS AT THIS TIME. WILL CPOC.
--- NOTE | 2016-09-15 15:01 | NUR ---
INITIATED PTS IV ALBUMIN INFUSING BY GRAVITY. PT IS RESTING QUIETLY IN BED WITH AT BEDSIDE. PT C/O OF MEJIA BUT STATES SHE DOESNT WANT TYLENOL SHE WANTS SOMETHING "STRONGER, BECAUSE TYLENOL DOESNT WORK" WILL ASK HER DOCTOR ABOUT IT. PT DENIES ANY FURTHER NEEDS AT THIS TIME. CL IN REACH, BED IN LOWEST, SIDE RAILS X2. WILL CTM.
--- NOTE | 2016-09-15 21:31 | NUR ---
RESTING IN BED. AROUSES TO VOICE. ALERT CONFUSED. REORIENTED MULTIPLE TIMES. PT FORGETFUL OF RECENT CONVERSATIONS. INCONTINENT. ORDOÑEZ PRESENT.
[2016-09-16] VITALS: BP 143/76
[2016-09-16 04:00] VITALS: BP 140/77
--- NOTE | 2016-09-16 04:05 | NUR ---
AREA SALES MANAGER AT BEDSIDE TO OBTAIN VITALS, CALL LIGHT IN REACH. WILL CONTINUE TO MONITOR.
[2016-09-16 06:22] LABS: BASOPHILS 0.5 % (0.0-2.0); EOSINOPHILS 10.4 % (0-7); HEMATOCRIT 28.8 % (36.0-48.0); HEMOGLOBIN 9.7 g/dL (12-16); IMMATURE GRANULOCYTES 0.5 % (0-5); LYMPHOCYTES 29.4 % (15-50); MCH 30.8 pg (26.0-34.0); MCHC 33.7 g/dL (31.0-37.0); MCV 91.4 fL (80.0-100.0); MEAN PLATELET VOLUME 12.4 fL (7.4-10.4); MONOCYTES 16.6 % (2-11); NEUTROPHILS 42.6 % (40-80); RBC 3.15 10x6/uL (4.00-5.40); RDW 13.6 % (11.5-14.5)
[2016-09-16 06:23] LABS: PLATELET COUNT 209 10x3/uL (130-400); WBC 4.2 10x3/uL (4.8-10.8)
[2016-09-16 06:55] LABS: ALBUMIN 3.2 g/dL (3.4-5.0); ANION GAP 12.2 mmol/L (8-16); BILIRUBIN - TOTAL 0.6 mg/dL (0.2-1.3); CALCIUM 8.3 mg/dL (8.5-10.1); CARBON DIOXIDE 25.4 mmol/L (21.0-32.0); CREATININE - SERUM 0.8 mg/dL (0.6-1.3); MAGNESIUM - SERUM 1.8 mg/dL (1.8-2.4); PHOSPHOROUS 2.8 mg/dL (2.5-4.9); POTASSIUM - SERUM 3.6 mmol/L (3.5-5.1); PROTEIN - SERUM 5.9 g/dL (6.4-8.2)
[2016-09-16 07:51] VITALS: BP 161/78
--- NOTE | 2016-09-16 08:17 | NUR ---
AM ROUNDING- PT LAYING IN BED ON BACK WITH EYES CLOSED SLEEPING. PT IS IN ENTERIC ISOLATION FOR C.DIFF. ON EP, LAB RESULTS CAME BACK NORMAL. O2 AT 2L VIA NC. IV SEEN TO RIGHT CVL, DRESSING CLEAN, DRY, AND INTACT. NS RUNNING AT 25CC. ZOFRAN RUNNING AT 4.7CC. ZOFRAN BAG WAS EMPTY. HUNG ANOTHER ORDERED FOR CONTINUOUS. WHAT APPEARS TO BE FEVER BLISTERS SEEN TO MOUTH AREA WITH DRY BLOOD. ORDOÑEZ CATHETER SEEN WITH YELLOW URINE. NO MONITOR. PER REPORT FROM INTERNAL CONTROL CONSULTANT NURSE NIRAJ, PT GETS UP WITH PHYSICAL THERAPY. PT HAS HX OF DEMENTIA/ALZHEIMERS PER REPORT. WILL CONTINUE TO MONITOR.
[2016-09-16 12:00] VITALS: BP 110/85
--- NOTE | 2016-09-16 14:25 | NUR ---
Nutrition Follow Up: Chart reviewed. Pt is +CDT and is in isolation. Noted per nursing note that pt has fever blisters to mouth. Diet: Regular Gastric Soft; Boost TID; Magic cup daily PO Intake: 59% (6 meal avg) +BM 09/16/16 I<O No new wt Meds: NS @ 25 ml/hr, Imodium, Albumin, Zofran, Flagyl, Vit D Labs noted Pt with good po intake at this time. Rec continue current diet as tolerated. Will continue to send Boost and Magic Cup. Will honor food preferences. RD following.
--- NOTE | 2016-09-16 15:48 | NUR ---
PHYSICAL THERAPY ASSISTED PT UP TO CHAIR. PT IS SITTING IN CHAIR WATCHING TV. NO NEED AT CURRENT TIME.
[2016-09-16 15:58] VITALS: BP 126/60
--- NOTE | 2016-09-16 16:40 | EC ---
PATIENT:YAMINI ZHAO DATE OF SERVICE: 09/07/16 SEX: F MEDICAL RECORD: [id number] DATE OF : 37 LOCATION:D.M2 D.214 AGE OF PATIENT: 81 ADMISSION DATE: 09/07/16 REFERRING PHYSICIAN: INTERPRETING PHYSICIAN: LEDY YOU MD ECHOCARDIOGRAM REPORT ECHO CHARGES 4 ECHO COMPLETE CLINICAL DIAGNOSIS: ELEVATED TROPONIN ECHOCARDIOGRAPHIC MEASUREMENTS (adult normal given) AC root (d.<3.7cm) 3.1 LV Septum d (<1.2 cm> 0.9 Valve Excursion 1.8 LV Septum (systole) 1.2 Left Atria (s.<4.0cm> 4.4 LVPW d(<1.2cm) 1.0 RV (d.<2.3cm) 2.4 LVPW (sytole) 1.6 LV diastole(<5.6CM) 3.5 MV E-F(>70mm/sec) LV systole 2.3 LVOT Diameter 1.6 MV exc.(>10mm) Est.ejection fraction (50-75%) Pericardial Effusion N DOPPLER: LVIT A 146 E 137 LA RVSP 49.2 LVOT 132 AOP1/2T Asc. Ao 171 RVOT 54.0 RA PA 81.0 AV Gradient Peak 12.0 AV Mean 5.0 AV Area 1.4 MV Gradient Peak 8.1 MV Mean 2.6 MV Area COMMENTS: Appointment Scheduler: Maik DANIELOE Cheese Supervisor:1 Dr. You TAPE# PACS DATE OF SERVICE: 09/09/2016 Echocardiogram FINDINGS: 1. Left ventricular chamber size is within normal limits. Left ventricular systolic function is normal. Overall ejection fraction is estimated at 60%. 2. Left atrium is enlarged at 4.4 cm. Right atrium and right ventricle chamber sizes are as well mildly dilated. 3. Valvular structures have normal structure and motion. ECHOCARDIOGRAM REPORT [id number] YAMINI ZHAO 4. Doppler interrogation reveals mild mitral regurgitation, moderate tricuspid regurgitation, no other valvular insufficiency or stenosis. Pulmonary systolic pressure is elevated and estimated at 49 mmHg. 5. No evidence of pericardial effusion or left ventricular thrombus. TRANSINT:[id number] Voice Confirmation ID: [id number] DOCUMENT ID: [id number] LEDY YOU MD at 8363 CC: [id number] DICTATION DATE: 09/09/16 1613 STEAM BLOCKER: 09/09/16 2159 ADM IN [place] [id number] [place] [id number]
--- NOTE | 2016-09-16 18:14 | NUR ---
PT IS CURRENTLY USING BATHROOM. IS AT BEDSIDE. NO NEED AT CURRENT TIME. MARINA HANSON IS IN ROOM ASSISTING PT. WILL CONTINUE TO MONITOR.
--- NOTE | 2016-09-16 19:31 | NUR ---
RESUMED CARE, 02-2L, R.KSYVZ-SNI-LD-25-ZOFRAN-4.7, PT IS ON CONTACT-ISO, VISITING WITH , DENIES ANY NEEDS, CALL LIGHT IN REACH
[2016-09-16 20:00] VITALS: BP 145/54
[2016-09-17] VITALS: BP 155/77
--- NOTE | 2016-09-17 01:51 | NUR ---
PT RESTING SOUNDLY WITHOUT C/O OR DISTRESS NOTED. CALL LIGHT WITHIN REACH. WILL CONT TO MONITOR.
[2016-09-17 04:00] VITALS: BP 152/64
--- NOTE | 2016-09-17 04:15 | NUR ---
SLEEPING, CALL LIGHT IN REACH, SRX2
[2016-09-17 05:46] LABS: MAGNESIUM - SERUM 1.7 mg/dL (1.8-2.4); PHOSPHOROUS 2.3 mg/dL (2.5-4.9); POTASSIUM - SERUM 3.3 mmol/L (3.5-5.1)
--- NOTE | 2016-09-17 07:20 | NUR ---
AM ROUNDING- PT IS LAYING IN BED ON BACK WITH EYES CLOSED SLEEPING. ORDOÑEZ SEEN WITH SLIGHTLY CONCENTRATED URINE. IV SEEN TO RIGHT CHEST CVL WITH NS RUNNING AT 25CC AND ZOFRAN RUNNING AT 4.7CC. ON VIA NC. ON EP, LAB RESULTS CAME BACK WITH POTASSIUM AT 3.3, PHOSPHORUS AT 2.3, AND MAGNESIUM AT 1.7. WILL COVER PER PROTOCOL. NO MONITOR. NO NEED AT CURRENT TIME. WILL CONTINUE TO MONITOR.
[2016-09-17 08:02] VITALS: BP 160/83
[2016-09-17 11:18] VITALS: BP 118/62
--- NOTE | 2016-09-17 13:37 | NUR ---
PT IS UP WALKING WITH PHYSICAL THERAPY.
--- NOTE | 2016-09-17 14:10 | NUR ---
D/C PTS ORDOÑEZ CATHETER ORDERED. PULLED OUT 10CC OUT OF ORDOÑEZ CATHETER BALLOON AND REMOVED PTS ORDOÑEZ CATHETER. TOLERATED WELL. PUT A BREIF ON PT AND INSTRUCTED PT TO USE CALL LIGHT WHEN HAVING THE URGE TO USE THE BATHROOM AND STAFF MEMBERS WOULD COME AND ASSIST HER. WILL CONTINUE TO MONITOR.
[2016-09-17 15:50] VITALS: BP 133/71
--- NOTE | 2016-09-17 18:14 | NUR ---
PT SITTING UP IN BED WITH EYES OPEN RESTING. AT BEDSIDE. NO NEED AT CURRENT TIME. WILL CONTINUE TO MONITOR.
--- NOTE | 2016-09-17 19:40 | NUR ---
RESUMED CARE OF PT, VISITING WITH , DENIES ANY NEEDS, 02-2L, R.WILY-ISABELLE @25,FELICIANO @4.7, CALL LIGHT IN REACH, BED IS LOW, SRX2, WILL CONTINUE TO MONITOR
[2016-09-17 20:37] VITALS: BP 134/67
--- NOTE | 2016-09-17 23:07 | NUR ---
PT LAYINGIN BED NO DISTRESS OBSERVED AT THIS TIME CALLLIGHTIN REACH SRX2 BED LOW AND LOCKED
[2016-09-18 00:24] VITALS: BP 143/78
--- NOTE | 2016-09-18 01:28 | NUR ---
HANGING ANTIBONIC, ASSISTED PT TO RESTROOM AND BACK TO BED
--- NOTE | 2016-09-18 04:26 | NUR ---
LINE BLOOD DRAW COMPLETE
[2016-09-18 04:29] VITALS: BP 138/74
[2016-09-18 06:02] LABS: BASOPHILS 0.6 % (0.0-2.0); EOSINOPHILS 6.6 % (0-7); HEMATOCRIT 26.7 % (36.0-48.0); HEMOGLOBIN 8.9 g/dL (12-16); IMMATURE GRANULOCYTES 0.6 % (0-5); LYMPHOCYTES 41.7 % (15-50); MCH 30.3 pg (26.0-34.0); MCHC 33.3 g/dL (31.0-37.0); MCV 90.8 fL (80.0-100.0); MONOCYTES 17.2 % (2-11); NEUTROPHILS 33.3 % (40-80); RBC 2.94 10x6/uL (4.00-5.40); RDW 13.8 % (11.5-14.5); WBC 3.3 10x3/uL (4.8-10.8)
[2016-09-18 06:08] LABS: PLATELET COUNT 277 10x3/uL (130-400)
[2016-09-18 06:50] LABS: ANION GAP 13.8 mmol/L (8-16); CALCIUM 8.5 mg/dL (8.5-10.1); CREATININE - SERUM 0.8 mg/dL (0.6-1.3); POTASSIUM - SERUM 3.8 mmol/L (3.5-5.1)
--- NOTE | 2016-09-18 07:34 | NUR ---
RECIEVED REPORT ON PATIENT, PATIENT IS ALERT AND ORIENTED AT THIS TIME. PATIENT HAS A R SUBCLAVIN CVL WITH NS INFUSING AT 25ML/HR AND ZOFRAN AT 4.7ML/HR. PATIENT IS ON ENTERIC ISOLATION FOR CDIFF. PATIENT DENIES ANY NEEDS OR PAIN AT THIS TIME. CPOC. BED LOW AND LOCKED. CALL LIGHT IN REACH. CPOC
[2016-09-18 07:41] VITALS: BP 146/67
--- NOTE | 2016-09-18 08:45 | NUR ---
MORNING MEDICATION GIVEN, ASSESSMENT DONE. PATIENT DENIES ANY NEEDS. CPOC
--- NOTE | 2016-09-18 10:00 | NUR ---
PATIENT SITTING UP IN CHAIR AT THIS TIME. WATCHING TV. DENIES ANY NEEDS AT THIS TIME. WILL CONT TO MONITOR PATIENT. CPOC
[2016-09-18 11:23] VITALS: BP 100/61
--- NOTE | 2016-09-18 12:25 | NUR ---
ASSISTED PATIENT TO BATHRROM, PATIENT HAD BM. BACK IN CHAIR AT THIS TIME. DENIES ANY FURTHER NEEDS. CPOC
[2016-09-18 15:24] VITALS: BP 123/57
--- NOTE | 2016-09-18 15:59 | NUR ---
PATIENT WALKING CAPONE WITH AUDIO SPECIALIST. CPOC
--- NOTE | 2016-09-18 17:17 | NUR ---
TYLENOL GIVEN FOR HEADACHE AND NECK PAIN. WILL CONT TO MONITOR PATIENT. CPOC
--- NOTE | 2016-09-18 18:20 | NUR ---
PATIENT AT BEDSIDE. PATIENT DENIES ANY NEEDS OR COMPLAINTS AT THIS TIME. WILL CONT TO MONITOR. CPOC
--- NOTE | 2016-09-18 19:30 | NUR ---
ASSESSMENT COMPLETE, DENIES NEEDS AT THIS TIME. SITTING UP IN BEDSIDE CHAIR VISITING WITH . RT TLSC INTACT WITH NS AT 25CC/HR AND ZOFRAN @ 4.7CC/HR VIA PUMP. JASPREET WELL. O2 @2L NC IN USE, ON ISOLATION PER PROTOCOL FOR CDIFF. CONTINUE TO MONITOR.
[2016-09-18 20:00] VITALS: BP 126/70
[2016-09-19] VITALS (7 sets, daily range): BP systolic 102–149; BP diastolic 55–90
--- NOTE | 2016-09-19 03:25 | NUR ---
EYES CLOSED, RESP UNLAB WITH NO S/S OF ACUTE DISTRESS NOTED. HOB UP SDR UP X2, C/L IN REACH. CONTINUE TO MONITOR.
[2016-09-19 06:22] LABS: EOSINOPHILS 7.4 % (0-7); HEMOGLOBIN 9.6 g/dL (12-16); IMMATURE GRANULOCYTES 0.3 % (0-5); LYMPHOCYTES 34.4 % (15-50); MCH 30.1 pg (26.0-34.0); MCHC 33.1 g/dL (31.0-37.0); MCV 90.9 fL (80.0-100.0); MEAN PLATELET VOLUME 10.9 fL (7.4-10.4); MONOCYTES 15.4 % (2-11); NEUTROPHILS 41.5 % (40-80); PLATELET COUNT 276 10x3/uL (130-400); RBC 3.19 10x6/uL (4.00-5.40); RDW 13.7 % (11.5-14.5); WBC 3.1 10x3/uL (4.8-10.8)
[2016-09-19 06:54] LABS: CALC OSMOLALITY 277 mosm/kg (275-300); CARBON DIOXIDE 23.5 mmol/L (21.0-32.0); CHLORIDE - SERUM 105 mmol/L (98-107); CREATININE - SERUM 0.7 mg/dL (0.6-1.3); GLUCOSE 90 mg/dL (74-106); MAGNESIUM - SERUM 1.7 mg/dL (1.8-2.4); PHOSPHOROUS 3.2 mg/dL (2.5-4.9); POTASSIUM - SERUM 4.1 mmol/L (3.5-5.1); SODIUM 139 mmol/L (136-145); UREA NITROGEN 13 mg/dL (7-18); eGFR NON AFRICAN AMERICAN 85 mL/min (90-120)
--- NOTE | 2016-09-19 07:54 | NUR ---
AM ROUNDING- PT LAYING IN BED ON BACK WITH EYES CLOSED RESTING. ON EP. IN ENTERIC ISOLATION FOR C.DIFF. IV SEEN TO RIGHT CVL WITH NS RUNNING AT 25CC AND ZOFRAN RUNNING AT 4.7CC. ON 02 AT 2L VIA NC. WALKER AT BEDSIDE. PER REPORT FROM BASS VIOL REPAIRER NURSE, GRETA PT REFUSES SCDS. JUST SAW ORDER TO D/C O2. WILL DO ORDERED. NO NEED AT CURRENT TIME. WILL CONTINUE TO MONITOR.
--- NOTE | 2016-09-19 12:46 | NUR ---
PT RESTING IN CHAIR, FEET ELEVATED. NO NEED AT CURRENT TIME. WILL CONTINUE TO MONITOR.
--- NOTE | 2016-09-19 18:29 | NUR ---
PT SITTING UP IN CHAIR WITH AT BEDSIDE. NO NEED AT CURRENT TIME. WILL CONTINUE TO MONITOR.
--- NOTE | 2016-09-19 19:30 | NUR ---
ASSESSMENT COMPLETE, DENIES NEEDS AT THIS TIME. SITTING UP IN BEDSIDE CHAIR WITH TV ON, C/L IN REACH. CONTINUE TO MONITOR. REMAIN IN CONTACT ISOLATION PER PROTOCOL FOR CDIFF. O2 @ 2L NC IN USE, UP WITH MIN ASSIST TO BR AND BACK TO BED, JASPREET WELL.
[2016-09-20 05:12] VITALS: BP 154/86
[2016-09-20 06:25] LABS: BASOPHILS 0.9 % (0.0-2.0); EOSINOPHILS 6.4 % (0-7); HEMATOCRIT 28.1 % (36.0-48.0); HEMOGLOBIN 9.3 g/dL (12-16); IMMATURE GRANULOCYTES 0.3 % (0-5); LYMPHOCYTES 34.6 % (15-50); MCH 30.2 pg (26.0-34.0); MCHC 33.1 g/dL (31.0-37.0); MCV 91.2 fL (80.0-100.0); MEAN PLATELET VOLUME 10.8 fL (7.4-10.4); NEUTROPHILS 39.8 % (40-80); PLATELET COUNT 320 10x3/uL (130-400); RBC 3.08 10x6/uL (4.00-5.40); RDW 14.1 % (11.5-14.5); WBC 3.4 10x3/uL (4.8-10.8)
[2016-09-20 06:40] LABS: ANION GAP 13.1 mmol/L (8-16); CALCIUM 9.1 mg/dL (8.5-10.1); CARBON DIOXIDE 24.7 mmol/L (21.0-32.0); CREATININE - SERUM 0.8 mg/dL (0.6-1.3); POTASSIUM - SERUM 3.8 mmol/L (3.5-5.1)
--- NOTE | 2016-09-20 08:14 | NUR ---
AM ROUNDING- PT LAYING IN BED ON BACK WITH EYES CLOSED RESTING. ON 02 AT 2L VIA NC. IV SEEN TO RIGHT CVL WITH NS RUNNING AT 25CC AND ZOFRAN RUNNING AT 4.7CC. IN ENTERIC CONTACT ISOLATION FOR C.DIFF. ON EP. PT IS UP AD SENDY WITH WALKER. NO NEED AT CURRENT TIME. WILL CONTINUE TO MONITOR.
[2016-09-20 08:31] VITALS: BP 148/84
[2016-09-20 11:42] VITALS: BP 125/81
--- NOTE | 2016-09-20 12:43 | NUR ---
Patient Name: YAMINI ZHAO Encounter No: [id number] : 1935 Primary Insurance: MEDICARE A & B Anticipated DC Date: 09-22-2016 Planned Disposition: Inpatient Rehab Facility--Preference is [facility] IP rehab. External Planned Provider: DR LEBLANC DCP follow-up note: CM MET WITH PATIENT TO DISCUSS DC PLAN. PT STATED SHE IS CONSIDERING [facility] IP REHAB AND DISCUSSED THIS WITH DR LEBLANC THIS MORNING. SHE STATED SHE FEELS SHE WOULD BENEFIT FROM CONTINUED REHAB SERVICES PRIOR TO GOING HOME. SHE INFORMED CM THAT SHE WOULD ONLY CONSIDER IP REHAB AT [facility] AND WOULD NOT CONSIDER REHAB SERVICES AT A SNF. CM PLACED CALL TO [facility] IP REHAB TO INFORM OF REHAB ORDER. SHE VOICED NO NEED FOR ANY DME EQUIPMENT OR ANY OTHER DC NEEDS AT THIS TIME. WILL AWAIT CALL FROM REHAB WITH ADMISSION DETERMINATION. DC IMM PRESENTED TO AND EXPLAINED TO PT. SIGNED IMM PLACED IN PT'S CHART. Case management will follow and assist as needed. Viktoria Escalante RN
--- NOTE | 2016-09-20 13:47 | OP ---
PATIENT NAME: YAMINI ZHAO MEDICAL RECORD: [id number] :37 LOCATION:D. D.2140 ADMISSION DATE:09/07/16 SURGEON: MATT RICO MD DATE OF OPERATION: 09/08/2016 PREOPERATIVE DIAGNOSES: 1. Need for IV access. 2. Septic shock. 3. Gram-negative sepsis. 4. Gram-negative bacteremia. 5. Acute renal failure. 6. Acute pyelonephritis. 7. Dementia. POSTOPERATIVE DIAGNOSES: 1. Need for IV access. 2. Septic shock. 3. Gram-negative sepsis. 4. Gram-negative bacteremia. 5. Acute renal failure. 6. Acute pyelonephritis. 7. Dementia. PROCEDURE: Right subclavian vein triple-lumen central venous line placement. SURGEON: Matt Rico MD REPORT OF PROCEDURE: The patient's right chest was prepped and draped in sterile fashion. A total of 5 cc of 1% lidocaine was infused into the subcutaneous tissues. A needle was used to cannulate the right subclavian vein. The guidewire was advanced with ease. Over this wire, a dilator was placed followed by the triple lumen catheter. The catheter aspirated nonpulsatile dark blood and flushed easily in all 3 ports. This was sutured into place with 3-0 silk ties and dressed appropriately. COMPLICATIONS: None. CONDITION: Stable. ANESTHESIA: Local. BLOOD LOSS: Minimal. TRANSINT:[id number] Voice Confirmation ID: [id number] DOCUMENT ID: [id number] MATT RICO MD at 1347 CC: [id number] DICTATION DATE: 09/09/16 1236 WELL TESTER: 09/09/16 1327 ADM IN [place] [id number] [place] [address]
--- NOTE | 2016-09-20 15:19 | NUR ---
Nutrition follow-up: Diet: Regular gastric soft; Boost with meals PO intake ~70% average of last 9 meals Labs reviewed +BM, formed Wt: 125# Pt continues to be in isolation for C.Diff PO intake continues to be good at this time. RDN following.
[2016-09-20 15:51] VITALS: BP 113/67
--- NOTE | 2016-09-20 16:52 | NUR ---
Rehab Note- Rehab Prescreen order received. Have spoken with patient & she is very willing to come to [facility] IRF for continued therapy to return back home at her PLOF. Will plan on admit when the physician feels the patient is ready for discharge. Thank you for this referral! Ashley Wagner RN Clinical Liaison, Rehab Care/[place]
--- NOTE | 2016-09-20 18:37 | NUR ---
PT SITTING UP IN CHAIR WITH EYES OPEN RESTING. IS AT BEDSIDE. NO NEED AT CURRENT TIME. WILL CONTINUE TO MONITOR.
[2016-09-20 19:00] VITALS: BP 135/78
--- NOTE | 2016-09-20 19:30 | NUR ---
RECEIVED PT SITTING IN CHAIR WATCHING TV RESP UNLABORED NAD NOTED AT BEDSIDE NAD NOTED
[2016-09-21] VITALS: BP 142/71
[2016-09-21 04:00] VITALS: BP 130/69
[2016-09-21 05:12] LABS: BASOPHILS 0.7 % (0.0-2.0); EOSINOPHILS 4.8 % (0-7); HEMATOCRIT 29.5 % (36.0-48.0); HEMOGLOBIN 9.7 g/dL (12-16); IMMATURE GRANULOCYTES 0.2 % (0-5); LYMPHOCYTES 35.3 % (15-50); MCH 30.1 pg (26.0-34.0); MCHC 32.9 g/dL (31.0-37.0); MCV 91.6 fL (80.0-100.0); MEAN PLATELET VOLUME 10.6 fL (7.4-10.4); MONOCYTES 16.5 % (2-11); NEUTROPHILS 42.5 % (40-80); PLATELET COUNT 359 10x3/uL (130-400); RBC 3.22 10x6/uL (4.00-5.40); RDW 14.1 % (11.5-14.5); WBC 4.2 10x3/uL (4.8-10.8)
[2016-09-21 05:26] LABS: ANION GAP 14.5 mmol/L (8-16); CALCIUM 9.5 mg/dL (8.5-10.1); CARBON DIOXIDE 23.3 mmol/L (21.0-32.0); CREATININE - SERUM 0.8 mg/dL (0.6-1.3); POTASSIUM - SERUM 3.8 mmol/L (3.5-5.1)
[2016-09-21 07:39] VITALS: BP 155/91
[2016-09-21] MEDS ORDERED: VANCOMYCIN250 MG/51 PO (08:06)
[2016-09-21] MEDS ORDERED: ALBUTEROL2.5 MG/3 M UPD (08:07)
[2016-09-21] MEDS ORDERED: QUESTRAN PACK4 G/PKT PO (08:08)
[2016-09-21] MEDS ORDERED: ACETAMINOPHEN325 MG PO (08:09)
--- NOTE | 2016-09-21 09:13 | CN ---
PATIENT NAME:YAMINI CHACKO MEDICAL RECORD: [id number] : 37 LOCATION:D. D.2140 ADMIT DATE: 09/07/16 ACCOUNT: [id number] CONSULTING PHYSICIAN: DAVID HOROWITZ MD REFERRING PHYSICIAN: ROBINSON LEBLANC DO DATE OF CONSULTATION: 09/08/2016 Pulmonary Consultation CONSULT REQUESTING PHYSICIAN: Dr. Rboinson Leblanc. REASON FOR CONSULTATION: Septic shock, pulmonary nodule, and septicemia. HISTORY OF PRESENT ILLNESS: Ms. Chacko is an 81-year-old female, who was admitted yesterday being not feeling well. She is sick for the last few days. She was seen in the urgent care, given some antibiotic, but that she was not getting any better. On evaluation in the ER yesterday, she was leukopenic. She was very weak and lethargic this morning. The patient became more hypotensive and the patient was transferred to the ICU. Now, she is awake and alert, but very weak and lethargic. She has a cough without much sputum production. 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 She is following at [facility]. She has also had leukopenia, for which she sees Dr. Palma as well as follow up at [facility]. REVIEW OF SYSTEMS: Mainly in the history of present illness. PAST MEDICAL HISTORY: 1. Leukopenia. 2. History of Mycobacterium avium. 3. History of aspergillosis. 4. History of hepatitis C. 5. Hypertension. 6. Coronary artery disease status post angioplasty and stent placement. 7. History of mitral valve prolapse. 8. History of pneumonia multiple times in the past, 3-4 times. 9. History of skin cancer. 10. Gastroesophageal reflux disease. 11. Osteoarthritis. PAST SURGICAL HISTORY: 1. She has a left hip fracture and also surgery for the wrist fracture. 2. Cataract surgery. 3. Hysterectomy. 4. Right eye surgery. ALLERGIES: SHE IS ALLERGIC TO ERYTHROMYCIN, KETOROLAC, NIACIN AND BEXTRA. PRESENT MEDICATIONS: She is on meropenem. Her other medication is reviewed. PERSONAL AND SOCIAL HISTORY: The patient never smoked. She is a nondrinker. She is and lives with her . PHYSICAL EXAMINATION: GENERAL: Now, the patient is awake and alert, but she is very weak and CONSULT REPORT [id number] YAMINI CHACKO letharglola. VITAL SIGNS: The blood pressure is 63/35, pulse is 104, respiration is 18, temperature 97.5, and SPO2 is 89% on room air. HEENT: Conjunctivae are pink, sclerae are not icteric. NECK: Supple. No JVD. CHEST: There is no wheeze, no rales. HEART: Rate and rhythm regular, normal sound, no murmur. ABDOMEN: Soft, bowel sounds present. No hepatosplenomegaly. RECTAL: Deferred. EXTREMITIES: No cyanosis, no clubbing, no pedal edema. SKIN: Warm, normal turgor. CENTRAL NERVOUS SYSTEM: The patient is awake and alert. There is no obvious cranial nerve abnormality. The gait was not tested. IMAGING: CT scan of the chest: There are bilateral nodular opacities. There are mediastinal hilar adenopathy. There are bilateral perinephric edema. The nodules sizes are from 2 mm-1.5 cm in size. LABORATORY DATA: CBC: WBC on admission 1.3, hemoglobin 13, hematocrit 38.9 and the platelet count is 114. The repeat WBC is 16.7, hemoglobin 10.4, hematocrit 31.3, the platelet count is 100. Chemistry: Sodium 138, potassium 3.5. BUN is 30, creatinine 1.9, the lactic acid is 3.3, bicarbonate is 22.4. Liver enzymes within normal range. The LDH is 268. The CK is 863, MB is 2.2. The troponin is 0.155. IMPRESSION: 1. Septic shock secondary to septicemia, most likely Gram-negative rods secondary to pyelonephritis. 2. Acute renal failure, possible acute tubular necrosis. 3. Lactic acidosis. 4. History of pulmonary nodule with a history of aspergillosis and Mycobacterium avium for which she follows in [place]. 5. Elevated cardiac enzymes, rule out acute coronary syndrome. RECOMMENDATION: 1. I will discontinue the dobutamine, start her on Levophed. Continue meropenem per Dr. Guevara. 2. Supplemental oxygen as required. 3. IV fluid bolus. Get a central line and CVP at range of 8-10. 4. Follow labs and x-ray in the morning. 5. Consult Dr. You. 6. Dr. Palma has already been consulted for leukopenia. Dr. Johns, once again, thank you for involving me in the care of Ms. Ricco. The critical care time is 45 minutes. TRANSINT:[id number] Voice Confirmation ID: [id number] DOCUMENT ID: [id number] CONSULT REPORT [id number] RICCOYAMINI MAN MUSHTAQ MD at 0913 CC: MAXI JOHNS MD [id number] DICTATION DATE: 09/08/16 1303 CONTROL SYSTEMS DEVELOPER: 09/08/16 1356 ADM IN [place] [id number] [place] [address]
[2016-09-21 11:38] VITALS: BP 126/70
--- NOTE | 2016-09-21 17:02 | NUR ---
1415. PATIENT AMBULATING IN HALLWAY WITH PT. PT HAS BEEN ACCEPTED TO REHAB. ORDER FOR CVL TO BE DC. DRESSING REMOVED. SITE CLEAN DRY. SITE PREPPED WITH BETADINE. SUTURES X3 REMOVED.CATH REMOVED WITH TIP INTACT. NO INFECTION NOTED ON TIP OR SITE. PRESSURE HELD FOR 5 MIN. DRESSING APPLIED. REPORT CALLED TO REHAB-[facility]. TO REHAB VIA .
--- NOTE | 2016-10-05 07:59 | DS ---
PATIENT:YAMINI ZHAO :37 MEDICAL RECORD: [id number] DISCHARGE SUMMARY ADMISSION DATE: 09/07/16 DISCHARGE DATE: 09/21/16 An 81-year-old female. DATE OF ADMISSION: 09/07/2016. DATE OF DISCHARGE: 09/21/2016. ADMISSION DIAGNOSES: Febrile neutropenia, dysuria, nausea, vomiting, history of aspergillosis and pulmonary Mycobacterium. DISCHARGE DIAGNOSES: Sepsis secondary to Escherichia coli pyelonephritis, C. difficile colitis, neutropenia, and herpes labialis. CONSULTS: Oncology, Dr. Palma, pulmonology, infectious disease, general surgery for central line, and cardiology. HOSPITAL COURSE: The patient had a protracted hospital course secondary to above. She was admitted to the ICU, started on empiric IV antibiotics adjusted as her cultures returned. C. difficile colitis identified. The patient was placed on isolation, was initially placed in reverse isolation and then maintained on isolation with the Clostridium difficile colitis. Blood counts gradually improved, it actually developed leukocytosis. She had herpetic lesions on her lips. HSV was positive was treated empirically with valacyclovir, has improved, is tolerating a regular diet. She is has also IV antibiotics and is feeling much better, has been cleared by a specialist. I appreciate their support and care. She was discharged to rehab in stable and improved condition. Vital signs on discharge: Temperature 97.9, blood pressure 155/91, heart rate 98, respirations 18, O2 sat is 98% room air. GENERAL: Alert and oriented. She does have underlying dementia, but she is oriented, ambulatory. HEART: Regular rate and rhythm. LUNGS: Clear. ABDOMEN: Soft with normal bowel sounds present. EXTREMITIES: Present times 4. No edema. NEUROLOGIC: No focal deficits. LABORATORY DATA: CBC on discharge, white count 4.2, significantly improved. Hemoglobin 9.7, stable, improved, hematocrit 29.5, platelets 359. We will continue oral vancomycin through the end of this month as per recommendations. Please see chart for further details. DISCHARGE MEDICATIONS: Per med rec. TRANSINT:[id number] Voice Confirmation ID: [id number] DOCUMENT ID: [id number] DISCHARGE SUMMARY REPORT [id number] YAMINI ZHAO ROBINSON LEBLANC DO at 0759 CC: [id number] DICTATION DATE: 09/21/16 0802 MEAT CUTTER APPRENTICE: 09/21/16 0855 DIS IN 09/21/16 [facility] [address] [facility] [place] [address]
== END 2016-09-21 14:28 | DRG 871 ==
LOC: D.ER 12:02 → D.ICU 18:05 → D.MS 18:05 → D.ICU 09-08 10:35 → D.M2 09-15 11:03
PROVIDERS: Emergency Medicine; Family Medicine; Internal Medicine Medical Oncology; Internal Medicine Pulmonary Disease; ADMIT Family Medicine
DX: A41.51 Sepsis due to Escherichia coli [E. coli] (principal); R65.21 Severe sepsis with septic shock; J18.9 Pneumonia, unspecified organism; N12 Tubulo-interstitial nephritis, not specified as acute or chronic; N17.9 Acute kidney failure, unspecified; E87.4 Mixed disorder of acid-base balance; A04.7 Enterocolitis due to Clostridium difficile; D61.818 Other pancytopenia; R91.1 Solitary pulmonary nodule; F03.90 Unspecified dementia, unspecified severity, without behavioral disturbance, psychotic disturbance, mood disturbance, and anxiety; B00.1 Herpesviral vesicular dermatitis; D63.8 Anemia in other chronic diseases classified elsewhere

== ENCOUNTER 2016-09-21 14:25 | Inpatient (IN) | payer MEDICARE, BC ==
[~2016-09-21] VITALS: Ht 152.4 cm; Wt 56.7 kg
[~2016-09-21 14:25] MED LIST changes: +ACETAMINOPHEN325 MG PO; +ALBUTEROL2.5 MG/3 M UPD; +QUESTRAN PACK4 G/PKT PO; +VANCOMYCIN250 MG/51 PO
--- NOTE | 2016-09-21 14:45 | NUR ---
PT ARRIVED VIA WHEELCHAIR WITH HOSPITAL STAFF AND PT TRANSFERED TO CHAIR IN ROOM PT STATED SHE WANTED TO SET UP GOT PT ICE WATER PUT CALL LIGHT IN REACH PT HAS NO COMPLAINTS WILL MONITER
[2016-09-21 15:06] VITALS: BP 133/56
[2016-09-21 15:35] VITALS: BP 133/56
--- NOTE | 2016-09-21 17:41 | NUR ---
PT IS STABLE. SHE USED A ROLLING WALKER TO GO TO THE BATHROOM WITH ASSIST A LITTLE WHILE AGO. PT. IS FRIENDLY AND COOPERATIVE. DENIES ANY PAIN OR DISCOMFORT AT THIS TIME. IS IN ROOM VISITING HER. CALL LIGHT IS IN REACH.
--- NOTE | 2016-09-21 19:10 | NUR ---
INTRODUCED SELF TO PT AND FAMILY MEMBER, PT STATES NO NEEDS AT THIS TIME, WILL CONTINUE TO MONITOR, CALL LIGHT WITHIN REACH.
--- NOTE | 2016-09-21 20:10 | NUR ---
NIGHT MEDICATION GIVEN, PT STATES PAIN IN HEAD AT A 10, PAIN MEDICATION GIVEN, WILL CONTINUE TO MONITOR, CALL LIGHT WITHIN REACH.
[2016-09-21 20:16] VITALS: BP 143/80
--- NOTE | 2016-09-21 22:23 | NUR ---
PT RESTING QUIETLY, RESPIRATIONS EVEN, BED IN LOW POSITION, SIDE RAILS UP X'S 2, CALL LIGHT WITHIN REACH, WILL CONTINUE TO MONITOR.
--- NOTE | 2016-09-22 00:09 | NUR ---
PT RESTING QUIETLY, RESPIRATIONS EVEN, BED IN LOW POSITION, SIDE RAILS UP X'S 2, CALL LIGHT WITHIN REACH.
--- NOTE | 2016-09-22 00:15 | NUR ---
ASSISTED PT TO BATHROOM AND BACK TO BED WITH MINIMAL ASSISTANCE. PT STATES NO NEEDS AT THIS TIME, WILL CONTINUE TO MONITOR, CALL LIGHT WITHIN REACH.
--- NOTE | 2016-09-22 02:00 | NUR ---
ASSISTED PATIENT UP TO BR TO URINATE AND THEN BACK TO BED. DENIES FURTHER NEEDS.
--- NOTE | 2016-09-22 04:10 | NUR ---
RESTING IN BED, EYES CLOSED. RESPIRATIONS QRE QUIET AND UNLABORED.
[2016-09-22 06:01] LABS: BASOPHILS 1.6 % (0.0-2.0); EOSINOPHILS 3.6 % (0-7); HEMATOCRIT 29.5 % (36.0-48.0); LYMPHOCYTES 41.2 % (15-50); MCH 31.1 pg (26.0-34.0); MCHC 33.9 g/dL (31.0-37.0); MCV 91.6 fL (80.0-100.0); MEAN PLATELET VOLUME 11.3 fL (7.4-10.4); MONOCYTES 16.6 % (2-11); PLATELET COUNT 369 10x3/uL (130-400); RBC 3.22 10x6/uL (4.00-5.40); RDW 14.5 % (11.5-14.5); WBC 3.9 10x3/uL (4.8-10.8)
--- NOTE | 2016-09-22 06:15 | NUR ---
ASSISTED PATIENT UP TO BR COMMODE TO URINATE, AND THEN BACK TO BED.
[2016-09-22 06:33] LABS: CALC OSMOLALITY 278 mosm/kg (275-300); CALCIUM 9.7 mg/dL (8.5-10.1); CARBON DIOXIDE 22.1 mmol/L (21.0-32.0); CHLORIDE - SERUM 106 mmol/L (98-107); CREATININE - SERUM 0.6 mg/dL (0.6-1.3); GLUCOSE 83 mg/dL (74-106); POTASSIUM - SERUM 3.8 mmol/L (3.5-5.1); SODIUM 140 mmol/L (136-145); UREA NITROGEN 16 mg/dL (7-18); eGFR NON AFRICAN AMERICAN > 90 mL/min (90-120)
--- NOTE | 2016-09-22 07:27 | NUR ---
RESTING QUIETLY IN BED. CALL LIGHT IN REACH
--- NOTE | 2016-09-22 08:15 | NUR ---
PT RESTING IN BED WITH EYES OPEN CALL LIGHT IN REACH NO PROBLEMS WILL MONITER
[2016-09-22 11:15] VITALS: BP 144/88
--- NOTE | 2016-09-22 13:44 | NUR ---
PT RESTING IN BED WITH EYES OPEN CALL LIGHT IN REACH NO PROBLEMS WILL MONITER
--- NOTE | 2016-09-22 13:45 | NUR ---
PT RESTING IN BED WITH EYES OPEN CALL LIGHT IN REACH NO PROBLEMS WILL MONITER
--- NOTE | 2016-09-22 17:48 | NUR ---
PT RESTING IN BED WITH EYES OPEN CALL LIGHT IN REACH NO PROBLEMS WILL MONITER
[2016-09-22 18:50] VITALS: BP 113/62
--- NOTE | 2016-09-22 19:10 | NUR ---
SITTING UP IN W/C AT BEDSIDE. DENIES NEEDS. C/O ABDOMINAL MUSCLE SORENESS, BUT OTHERWISE HAS NO COMPLAINTS. DR. DÍAZ WE JUST IN TO SEE PATIENT FOR A FEW MINUTES, AND HAS SINCE DEPARTED.
--- NOTE | 2016-09-22 20:20 | NUR ---
REMAINS SEATED IN RECLINER BESIDE BED. DENIES NEEDS.
--- NOTE | 2016-09-22 22:10 | NUR ---
ASSESSMENT AND HS MEDS COMPLETE. GAVE PATIENT TYLENOL 650MG PO FOR C/O MILD HEADACHE, AND NECK/BACK PAIN OF LEVEL 7/10. PATIENT IS A&O X4 BUT HAS POOR SHORT TERM MEMORY,.e.g. I WAS LEAVING ROOM, SHE ASKED IF SHE COULD HAVE SOME TYLENOL, WHICH IS HAD GIVEN TO HER ONLY 10 MINUTES BEFORE. CONTINUES ON CONTACT ISOLATION FOR C.diff.
--- NOTE | 2016-09-23 | NUR ---
IN BED, RESTING QUIETLY AFTER ASSIST UP TO BR AND BACK WITH COIN MACHINE MECHANIC ASSIST ABOUT 2315.
--- NOTE | 2016-09-23 02:25 | NUR ---
RESTING QUIETLY IN BED, EYES CLOSED. NO DISTRESS NOTED.
--- NOTE | 2016-09-23 04:30 | NUR ---
RESTING IN BED, EYES CLOSED. RESPIRING QUIETLY.
--- NOTE | 2016-09-23 06:10 | NUR ---
CONTINUES IN BED. DENIES NEEDS.
[2016-09-23 07:21] LABS: ANION GAP 15.8 mmol/L (8-16); CALCIUM 9.8 mg/dL (8.5-10.1); CARBON DIOXIDE 24.2 mmol/L (21.0-32.0); CREATININE - SERUM 0.8 mg/dL (0.6-1.3)
[2016-09-23 07:51] VITALS: BP 158/89
--- NOTE | 2016-09-23 08:00 | NUR ---
SITTING UP IN BED EATING BREAKFAST.CL IN REACH.DENIES NEEDS.
[2016-09-23 08:04] LABS: BASOPHILS 2.9 % (0.0-2.0); EOSINOPHILS 3.2 % (0-7); HEMATOCRIT 30.9 % (36.0-48.0); HEMOGLOBIN 10.3 g/dL (12-16); LYMPHOCYTES 44.4 % (15-50); MCH 30.6 pg (26.0-34.0); MCHC 33.3 g/dL (31.0-37.0); MCV 91.7 fL (80.0-100.0); MEAN PLATELET VOLUME 10.3 fL (7.4-10.4); MONOCYTES 13.7 % (2-11); NEUTROPHILS 35.8 % (40-80); PLATELET COUNT 392 10x3/uL (130-400); RBC 3.37 10x6/uL (4.00-5.40); RDW 14.4 % (11.5-14.5); WBC 3.2 10x3/uL (4.8-10.8)
--- NOTE | 2016-09-23 16:06 | NUR ---
PT RESTING IN BED WITH EYES OPEN CALL LIGHT IN REACH WILL MONITER
[2016-09-23 19:46] VITALS: BP 127/70
--- NOTE | 2016-09-23 20:03 | NUR ---
CDIFF PRECAUTIONS, SPOUSE PRESENT HELPING PATIENT WITH HS CARES AND COMPLETING MENU. PT IS PLEASANT AND CONVERSIVE. DENIES ANY NEEDS AT THIS TIME.
--- NOTE | 2016-09-24 04:30 | NUR ---
pt awoke, was able to quickly reorient to time of day, changed brief, was incontinent, pt ambulated with assist of 1.
--- NOTE | 2016-09-24 06:43 | NUR ---
pt resting quietly, no s/s of acute distress.
[2016-09-24 07:00] VITALS: BP 130/101
--- NOTE | 2016-09-24 07:00 | NUR ---
Pt. was received at the beginning of this shift in bed awake and oriented x 3. No voiced complaints at this time. Vital signs: Temp. 98.5, pulse 96, resp. 14, b/p 130/101, 02sat 98%. Remains in contact isolation precautions for C-Diff. Will be monitoring her and assisting prn with adl's. Call light in reach.
--- NOTE | 2016-09-24 18:29 | NUR ---
Pt. got up with therapist and began walking in the hallway this morning and complained of her left calf hurting to him. The therapist reported this to the nurse making this note. Assessment reveled possible blot clot in that region. Dr. Hernandez was notified and put in order for a venous doppler. The test was done and it revealed a blot clot to that region. Dr. Watts gave order for Lovenox 60mg sq q 12 hours. First injection was given this evening. Pt. and pt's were notified of the results of the test. Pt. complained of a head ache this evening and was given Tylenol 650mg at 1805. in room with pt. Call light in reach.
--- NOTE | 2016-09-24 19:24 | NUR ---
activity limited r/t to positive doppler study. spouse sitting at bedside, denies any complaints.
[2016-09-24 20:00] VITALS: BP 135/73
--- NOTE | 2016-09-25 00:12 | NUR ---
PT USING BEDPAN, NO S/S OF ACUTE DISTRESS, RESPIRATIONS REGULAR AND UNLABORED. NO SWELLING OR REDNESS IN LEFT LOWER EXTREMITIES, +KOJO'S SIGN.
[2016-09-25 07:00] VITALS: BP 163/94
--- NOTE | 2016-09-25 07:13 | NUR ---
pt had soft formed stool, respirations regular and unlabored, no s/s of acute distress.
--- NOTE | 2016-09-25 07:58 | NUR ---
PATIENT REMAINS IN CONTACT ISOLATION FOR C-DIFF. ALERT/ORIENT WITH SOME FORGETFULNESS NOTED. CALL LIGHT WITHIN REACH. VOICES NO NEEDS
--- NOTE | 2016-09-25 10:44 | NUR ---
PRN TYLENOL GIVEN FOR A HEADACHE
--- NOTE | 2016-09-25 11:15 | NUR ---
PATIENT IN SHOWER. NURSE ASST. HELPED TO SET UP ALL SUPPLIES. PATIENT ABLE TO WASH AND DRY SELF.
--- NOTE | 2016-09-25 12:00 | NUR ---
AMB TO BATHROOM DUE TO INCONTINENCE W/O HELP,CAUTIONED PT NOT TO GET UP BY HERSELF AND TO USE CL.WAVES ARMS AND STATED SHE DID NOT WANT TO HEAR THIS;EXPLAINED THAT WE JUST DID NOT WANT HER TO FALL. IN ROOM.
--- NOTE | 2016-09-25 15:29 | NUR ---
PATIENT HELPED INTO BATHROOM. STAND BY ASST USING WALKER.
[2016-09-25 20:39] VITALS: BP 148/76
--- NOTE | 2016-09-25 20:45 | NUR ---
PT REQ AND REC'D PRN TYLENOL FOR HEADACHE. HS MEDS GIVEN. PT STATES NO FURTHUR NEEDS. WCTM. BED LOW. CL IN REACH.
--- NOTE | 2016-09-26 00:09 | NUR ---
PT RESTING, EYES CLOSED. BED LOW. CL IN REACH.
--- NOTE | 2016-09-26 02:40 | NUR ---
PT RESTING EYES CLOSED. RR ARE EVEN AND UNLABORED. WCTM. BED LOW. CL IN REACH.
--- NOTE | 2016-09-26 06:36 | NUR ---
PT ASSISTED TO BR. AM MEDS GIVE. PT BACK IN BED AND DENIES FURTHUR NEEDS AT THIS TIME. BED LOW. CL IN REACH.
[2016-09-26 06:49] LABS: ANION GAP 14.5 mmol/L (8-16); CARBON DIOXIDE 22.5 mmol/L (21.0-32.0); CREATININE - SERUM 0.8 mg/dL (0.6-1.3)
[2016-09-26 06:54] LABS: BASOPHILS 1.2 % (0.0-2.0); EOSINOPHILS 3.8 % (0-7); HEMATOCRIT 32.8 % (36.0-48.0); HEMOGLOBIN 10.8 g/dL (12-16); LYMPHOCYTES 44.7 % (15-50); MCH 30.3 pg (26.0-34.0); MCHC 32.9 g/dL (31.0-37.0); MCV 91.9 fL (80.0-100.0); MONOCYTES 17.5 % (2-11); NEUTROPHILS 32.8 % (40-80); PLATELET COUNT 373 10x3/uL (130-400); RBC 3.57 10x6/uL (4.00-5.40); RDW 14.3 % (11.5-14.5); WBC 3.4 10x3/uL (4.8-10.8)
[2016-09-26 07:52] VITALS: BP 174/84
--- NOTE | 2016-09-26 08:04 | NUR ---
PATIENT IS IN CONTACT ISOLATION PRECAUSION. ALERT/ORIENT WITH SOME FORGETFULNESS. SITTING UP IN BED TO EAT BREAKFAST. CALL LIGHT WITHIN REACH. VOICES NO NEEDS
--- NOTE | 2016-09-26 10:25 | NUR ---
DR. Christy VELASCO INTO SEE PATIENT. NEW ORDERS RECEIVED.
--- NOTE | 2016-09-26 11:30 | NUR ---
PATIENT IN REHAB ROOM. WORKING WITH PHYISCAL THERAPIST. DENIES ANY PAIN/DISC AT THIS TIME.
--- NOTE | 2016-09-26 14:22 | NUR ---
PATIENT WORKING WITH OCCUPATIONAL THERAPIST
--- NOTE | 2016-09-26 17:28 | NUR ---
PATIENT WALKING WITH WHEELED WALKER INTO BATHROOM. STAND BY ASST. PATIENT IS ABLE TO DO OWN DERRELL CARE
[2016-09-26 19:15] VITALS: BP 114/61
--- NOTE | 2016-09-26 19:15 | NUR ---
SITTING UP AT BEDSIDE IN W/C. SEATED BESIDE HER. CURRENTLY HAVING VS TAKEN BY TEACHER'S AIDE. PATIENT HAD QUESTIONS ABOUT DURATION OF VANCOMYCIN ORAL DOSING DURATION. TOLD HER THAT WILL BE UP TO HER T RAIL TURNER, DR. DÍAZ.
--- NOTE | 2016-09-26 21:30 | NUR ---
ASSISTED PATIENT BACK INTO BED FROM RECLINER AT BEDSIDE. ASSESSMENT AND HS MEDS COMPLETE. PATIENT DENIES NEEDS. REMAINS ORIENTED X4 BUT HAS VERY POOR SHORT-TERM MEMORY. BED ALARM IS ARMED. SR UP X3 WITH WATER AND CALL LIGHT IN REACH.
--- NOTE | 2016-09-26 22:20 | NUR ---
RESTING IN BED, EYES CLOSED. LYING ON LEFT SIDE. NO DISTRESS NOTED.
--- NOTE | 2016-09-27 00:20 | NUR ---
ASSISTED PATIENT UP TO BR TO URINATE, AND THEN BACK TO BED. DENIES FURTHER NEEDS.
--- NOTE | 2016-09-27 02:00 | NUR ---
RESTING IN BED ON RIGHT SIDE. NO APPARENT DISTRESS.
--- NOTE | 2016-09-27 04:45 | NUR ---
RESTING IN BED, EYES CLOSED. RESPIRATIONS ARE UNLABORED.
--- NOTE | 2016-09-27 06:26 | NUR ---
RESTING QUIETLY IN BED, EYES CLOSED AFTER ASSIST UP TO BR AROUND 0600.
--- NOTE | 2016-09-27 08:15 | NUR ---
PT RESTING IN BED WITH EYES OPEN CALL LIGHT IN REACH NO PROBLEMS WILL ZEESHAN
[2016-09-27 08:43] VITALS: BP 164/79
--- NOTE | 2016-09-27 16:48 | NUR ---
PT RESTING IN BED WITH EYES OPEN CALL LIGHT IN REACH NO PROBLEMS WILL MONITER
[2016-09-27 18:40] VITALS: BP 117/61
--- NOTE | 2016-09-27 19:20 | NUR ---
CURRENTLY ON BR COMMODE FINISHING BM AND URINATING. ACCOUNT PLANNER ASSISTING PATIENT WITH TRANSFERS. PATIENT DENIES NEEDS. WILL RETURN TO RECLINER AT BEDSIDE TO SIT FOR AWHILE UNTIL TIME FOR HS MEDS, PER HER REQUEST.
--- NOTE | 2016-09-27 20:50 | NUR ---
ASSESSMENT AND HS MEDS COMPLETE. ASSISTED PATIENT UP TO W/C TO BRUSH TEETH AT SINK. MASTER BREWER STANDING BY TO INSURE PATIENT DOES NOT ATTEMPT TO TRANSFER FROM W/C TO BED WITHOUT STAFF PRESENT. PATIENT HAS POOR STM AND DOES NOT REMEMBER HER BRAKES WHILE USING THE W/C.
--- NOTE | 2016-09-27 22:20 | NUR ---
IN BED, EYES CLOSED. SNORING SOFTLY.
--- NOTE | 2016-09-27 23:15 | NUR ---
ASSISTED PATIENT UP TO BR TO URINATE AND THEN BACK TO BED. ON RETURN TO BED ASSISTED HER TO EMPLACE HER NASAL MASK FOR HER PERSONAL CPAP AND STARTED THE MACHINE. PATIENT STATED HER IS INSISTING SHE USE IT IN THE HOSPITAL BUT SAYS SHE HAS NOT BEEN USING IT AT HOME.
--- NOTE | 2016-09-28 00:20 | NUR ---
RESTING QUIETLY IN BED WITH CPAP NASAL MASK IN PLACE. NO DISTRESS NOTED.
--- NOTE | 2016-09-28 02:25 | NUR ---
IN BED, EYES CLOSED. CPAP MASK REMAINS IN PLACE WITH CPAP OPERATING. PATIENT APPEARS COMFORTABLE.
--- NOTE | 2016-09-28 04:30 | NUR ---
RESTING QUIETLY. CPAP IS OFF PER PATIENT REQUEST AT TIME OF LAST TOILETING.
--- NOTE | 2016-09-28 06:00 | NUR ---
RESTING IN BED, EYES CLOSED. PATIENT DRESSED RECENTLY WHILE ON COMMODE. NO DISTRESS NOTED.
[2016-09-28 06:44] LABS: BASOPHILS 0.9 % (0.0-2.0); EOSINOPHILS 4.4 % (0-7); HEMOGLOBIN 10.6 g/dL (12-16); IMMATURE GRANULOCYTES 0.3 % (0-5); LYMPHOCYTES 49.4 % (15-50); MCH 30.3 pg (26.0-34.0); MCHC 33.1 g/dL (31.0-37.0); MCV 91.4 fL (80.0-100.0); MEAN PLATELET VOLUME 10.5 fL (7.4-10.4); MONOCYTES 16.1 % (2-11); NEUTROPHILS 28.9 % (40-80); PLATELET COUNT 317 10x3/uL (130-400); RDW 14.2 % (11.5-14.5); WBC 3.2 10x3/uL (4.8-10.8)
[2016-09-28 06:58] LABS: ANION GAP 15.2 mmol/L (8-16); CALCIUM 9.2 mg/dL (8.5-10.1); CARBON DIOXIDE 22.9 mmol/L (21.0-32.0); CREATININE - SERUM 0.8 mg/dL (0.6-1.3); POTASSIUM - SERUM 4.1 mmol/L (3.5-5.1)
--- NOTE | 2016-09-28 08:00 | NUR ---
SITTING UP IN CHAIR EATING BREAKFAST.CL IN REACH.
[2016-09-28 08:07] VITALS: BP 148/80
--- NOTE | 2016-09-28 08:44 | RHP ---
PATIENT: YAMINI ZHAO MEDICAL RECORD: [id number] ACCOUNT: [id number] LOCATION:[facility] [id number] : 36 ADMISSION DATE: 09/21/16 REHABILITATION HISTORY AND PHYSICAL EXAMINATION POST ADMISSION PHYSICIAN EXAMINATION DATE OF ADMISSION: 09/21/2016. ADMITTING DIAGNOSES: Acute sepsis complicated by septic shock and acute renal failure. HISTORY OF PRESENT ILLNESS: The patient was admitted to the inpatient rehab for acute sepsis with acute shock and acute renal failure. She is an 81-year-old female who is admitted on September 07 for not feeling well. She was sick few days prior to admit. She was seen in urgent care, given some antibiotics, but she was not getting any better. On evaluation in the Emergency Room on September 07, she was leukopenic and neutropenic on admit. She has got a history of multiple medical issues including pulmonary atypical mycoplasma infection and aspergillosis. She was admitted to the hospital. She became more hypotensive and was transferred to the ICU. She is awake and alert now, but remains weak and wants to return home at her prior level of functioning. She was found to have C. diff and continues on IV antibiotic therapy for this. She also has a history of leukopenia for which she sees Dr. Palma as well. She follows up at [facility] for this also. She should definitely benefit from inpatient rehab and is only ____ that she will get back to her prior level of functioning and return home. COMORBIDITIES: Include acute bacteremia with gram negative bacteria, pyelonephritis, herpes simplex, C. diff, COPD, bilateral pulmonary infiltrates, UTI, acute kidney injury, metabolic acidosis, leukopenia, anemia, thrombocytopenia, history aspergillosis, hypertension, headaches, debility, coronary artery disease, history of mitral valve prolapse, osteoarthritis, neuropathy, glaucoma, cataracts, mycobacteria avium complex, pulmonary disease, incontinence and short-term memory loss. PAST MEDICAL HISTORY: Significant for leukopenia, mycobacterium avium, aspergillosis, history of hepatitis C, hypertension, coronary artery disease, mitral valve prolapse, multiple pneumonias, skin cancer, gastroesophageal reflux disease and osteoarthritis. PAST SURGICAL HISTORY: Includes a hip surgery and fracture in the past, cataract surgery, hysterectomy and eye surgery. ALLERGIES: NIACIN, ERYTHROMYCIN, TORADOL, AND BEXTRA. CURRENT MEDICATIONS: Include Isordil 30 mg daily, chondroitin sulfate daily, Questran daily. She is on vitamin D 400 units daily, Pepcid 20 mg b.i.d. She is on vancomycin oral solution 250 q.i.d. She is on Xalatan eye drops, Aricept 5 mg at bedtime, Carvedilol 6.25 mg b.i.d. with meals, Ventolin updrafts p.r.n. and Tylenol 650 q.4-6 hours p.r.n. elevated temperature. HABITS: No alcohol or tobacco use. FAMILY HISTORY: Noncontributory. HISTORY AND PHYSICAL [id number] YAMINI ZHAO SOCIAL HISTORY: The patient wants to return home with her . REVIEW OF SYSTEMS: GENERAL: She does complain of weakness and fatigue. HEENT: She denies cold, cough, or congestion. CARDIOVASCULAR: She denies any chest pain. LUNGS: She does complain of shortness of breath at times. PHYSICAL EXAMINATION: VITAL SIGNS: Stable. She is afebrile. GENERAL: An elderly female in no acute distress, alert upon exam. HEENT: Normocephalic and atraumatic. Mucosa moist. NECK: Supple. No lymphadenopathy. LUNGS: Clear in upper preciado. She does have decreased breath sounds in the bases. CARDIOVASCULAR: Regular rate and rhythm. ABDOMEN: Benign. EXTREMITIES: No clubbing, cyanosis or edema. NEUROLOGIC: She does have noted weakness. LABORATORY DATA: Her white count was 3.9, H&H of 10 and 29, and platelet count was noted to be 369. Her sodium is 140, potassium 3.8. BUN and creatinine of 16 and 0.6 and blood sugar was noted to be 83. ASSESSMENT: This is an 81-year-old female patient admitted to rehab with a working diagnosis of sepsis complicated by shock and acute renal failure. The patient has potential to make improvement. We instituted the following multidisciplinary therapies including to, but not limited to physical, occupational, respiratory, speech, nutritional services, prosthetics and orthotics. Given her complex condition and risk for more complications, rehabilitation services cannot be provided at a low level of care such as a [facility] facility. PLAN: 1. Admit to [facility] rehab for intensive inpatient therapy to include the following disciplines: A. Physical therapy to improve gait, all transfer skills and bed mobility to a modified independent level. B. Occupational therapy to improve activities of daily living to a modified independent level. C. Case management to assist with discharge planning and placement options. D. Nutrition to assist with nutritional needs. E. Rehabilitation nursing to assist in monitoring the patient's underlying medical conditions and to assist with any type of bowel or bladder management. 2. The patient's current medication and medical care will be continued. 3. The patient will be placed on standard fall precautions. 4. The patient's estimated length of stay is approximately 7-10 days. 5. Discuss this patient during care team staff meeting this week. TRANSINT:[id number] Voice Confirmation ID: [id number] DOCUMENT ID: [id number] HISTORY AND PHYSICAL [id number] YAMINI ZHAO SCOTT MD at 0844 CC: [id number] DICTATION DATE: 09/22/16 0842 MEASURING MACHINE TENDER: 09/22/16 0956 ADM IN [facility] [address] [id number]
--- NOTE | 2016-09-28 10:41 | NUR ---
PT UP TO BATHROOM PT VOIDED THEN PT ASSISTED TO BEDSIDE CHAIR TO EAT BREAKFAST CALL LIGHT IN REACH NO PROBLEMS WILL MONITER
--- NOTE | 2016-09-28 16:28 | NUR ---
CARE TEAM MEETING: PATIENT TENATIVE DISCHARGE DATE IS 10/04/16. PATIENT HAS ROLLING WALKER AND WHEELCHAIR AT HOME. DR. LEBLANC IS PATIENT PCP. WILL CONTINUE TO FOLLOW WITH PATIENT UNTIL DISCHARGED
--- NOTE | 2016-09-28 18:13 | NUR ---
PT UP IN CHAIR NO PROBLEMS CALL LIGHT IN REACH WILL MONITER
--- NOTE | 2016-09-28 18:55 | NUR ---
SITTING UP IN RECLINER AT BEDSIDE. VISITING AT PRESENT. DENIES NEEDS.
[2016-09-28 19:10] VITALS: BP 123/67
--- NOTE | 2016-09-28 21:00 | NUR ---
ASSESSMENT AND HS MEDS COMPLETE. PATIENT REQUESTS TO REMAIN UP IN RECLINER FOR NOW. WILL CALL WHEN READY TO LIE DOWN.
--- NOTE | 2016-09-28 22:15 | NUR ---
WAS ASSISTED INTO BED @ 2150 BY [facility]. CURRENTLY RESTING QUIETLY. EYES CLOSED.
--- NOTE | 2016-09-29 00:15 | NUR ---
ASSISTED PATIENT UP TO BR TO URINATE, AND THEN BACK TO BED. DENIES NEEDS.
--- NOTE | 2016-09-29 01:50 | NUR ---
REMAINS IN BED, EYES CLOSED. APPEARS COMFORTABLE.
--- NOTE | 2016-09-29 03:45 | NUR ---
REMAINS IN BED, EYES CLOSED. RESPIRATIONS QUIET AND UNLABORED.
--- NOTE | 2016-09-29 05:45 | NUR ---
RESTING QUIETLY IN BED, EYES CLOSED.
--- NOTE | 2016-09-29 07:00 | NUR ---
Pt. was received in room at the beginning of this shift sitting in bedside chair. Alert and oriented x 3. Vital signs: Temp. 97.6, pulse 75, resp. 17, B/P166/84, 02Sat. 99%. She continues to be in isolation precautions. She ambulates with a walker with stand by assist. She denied any pain or discomfort at this time. Will continue to monitor her throughout this shift and assist prn with her adl's.
[2016-09-29 09:42] VITALS: BP 166/84; Ht 152.4 cm; Wt 56.7 kg
--- NOTE | 2016-09-29 16:21 | NUR ---
Pt. will put student education specialist light when she needs to go to the bathroom. She will ambulate using her rolling walker when she does go to the bathroom. at bedside visiting.
[2016-09-29 18:45] VITALS: BP 112/51
--- NOTE | 2016-09-29 19:00 | NUR ---
SITTING IN RECLINER AT BEDSIDE. CURRENTLY VISITING WITH HER.
--- NOTE | 2016-09-29 20:50 | NUR ---
ASSESSMENT AND HS MEDS COMPLETE. GAVE HER TYLENOL 650MG PO FOR BACK PAIN OF LEVEL 4/10. SAID SHE WANTS TO SIT UP FOR AWHILE LONGER.
--- NOTE | 2016-09-29 21:45 | NUR ---
CAUGHT PATIENT TRANSFERRING HERSELF FROM RECLINER TO BED, USING HER R/W BUT ALSO TRYING TO DRAG BEDSIDE TABLE WITH HER AT THE SAME TIME. REMINDED HER THAT I HAD EARLIER TOLD HER TO CALL ME WHEN SHE WAS READY TO GO TO BED, AND THAT IT IS NOT A GOOD IDEA TO PULL A TABLE WHEN USING A WALKER SHE NEEDS BOTH HANDS ON THE WALKER FOR SAFETY. ASSISTED HER INTO BED AND ARMED BED ALARM. SR UP X3 WITH WATER AND CALL LIGHT IN REACH.
--- NOTE | 2016-09-29 23:50 | NUR ---
ASSISTED PATIENT UP TO BR COMMODE TO URINATE AND THEN BACK TO BED.
--- NOTE | 2016-09-30 01:40 | NUR ---
ASSISTED PATIENT UP TO BR TO URINAT, AND THEN BACK TO BED. DENIES FURTHER NEEDS.
--- NOTE | 2016-09-30 04:15 | NUR ---
RESTING QUIETLY IN BED, EYES CLOSED USING UNLABORED RESPIRATIONS.
--- NOTE | 2016-09-30 05:45 | NUR ---
BACK IN BED, RESTING QUIETLY SINCE SHE WAS ASSISTED UP TO BR ABOUT 15 MINUTES AGO. NO DISTRESS NOTED.
[2016-09-30 06:44] LABS: BASOPHILS 0.6 % (0.0-2.0); EOSINOPHILS 5.2 % (0-7); HEMATOCRIT 32.7 % (36.0-48.0); HEMOGLOBIN 10.7 g/dL (12-16); LYMPHOCYTES 46.4 % (15-50); MCH 30.2 pg (26.0-34.0); MCHC 32.7 g/dL (31.0-37.0); MCV 92.4 fL (80.0-100.0); MEAN PLATELET VOLUME 10.2 fL (7.4-10.4); MONOCYTES 17.1 % (2-11); NEUTROPHILS 30.7 % (40-80); RBC 3.54 10x6/uL (4.00-5.40); RDW 14.2 % (11.5-14.5); WBC 3.5 10x3/uL (4.8-10.8)
[2016-09-30 06:53] LABS: PLATELET COUNT 241 10x3/uL (130-400)
[2016-09-30 06:57] LABS: CALCIUM 9.2 mg/dL (8.5-10.1); CARBON DIOXIDE 26.1 mmol/L (21.0-32.0); CREATININE - SERUM 0.9 mg/dL (0.6-1.3); POTASSIUM - SERUM 4.1 mmol/L (3.5-5.1)
--- NOTE | 2016-09-30 07:00 | NUR ---
Pt. was received in her room at the beginning of this shift. She is ambulatory with her walker. Stable condition observed. Vital signs: Temp. 97.7, pulse 66, resp. 18, b/p 138/89, 02Sat. 98%. No voiced complaints of discomfort. Will continue to monitor and assist prn with adl's. Remains in isolation precautions.
[2016-09-30 08:31] VITALS: BP 138/89
[2016-09-30 18:45] VITALS: BP 115/70
--- NOTE | 2016-09-30 19:26 | NUR ---
pt is sitting up in chair talking on her phone, smiles easily and states she is talking to her hubby. no needs at this time.
--- NOTE | 2016-10-01 00:20 | NUR ---
ambulated to bathroom with sba/walker. pt states she feels like she has been sleeping. coccyx region not as red, pt states doesn't burn as it was.
--- NOTE | 2016-10-01 04:22 | NUR ---
pt resting quietly, no s/s of acute distress.
[2016-10-01 08:15] VITALS: BP 140/69
--- NOTE | 2016-10-01 08:15 | NUR ---
PT RESTING IN BED WITH EYES OPEN CALL LIGHT IN REACH WILL MONITER
--- NOTE | 2016-10-01 12:15 | NUR ---
PT UP IN BEDSIDE CHAIR EATING LUNCH CALL LIGHT IN REACH TOLERATING WELL WILL MONITER
[2016-10-01 19:21] VITALS: BP 127/70
--- NOTE | 2016-10-01 19:46 | NUR ---
PT STATES SHE IS GETTING STRONGER, CAN GET OFF THE TOILET BY HERSELF, CAN SIT TO STAND FROM A CHAIR, SMILES EASILY. SPOUSE PRESENT. DENIES ANY NEEDS.
--- NOTE | 2016-10-01 22:54 | NUR ---
PT OPTED TO LAY DOWN AT 10P, PT IS CONVERSIVE, SMILES EASILY, FOLLOWS DIRECTIONS. PT STATES IT IS ABOUT TIME TO LAY DOWN.
[2016-10-02 07:00] VITALS: BP 160/92
--- NOTE | 2016-10-02 07:14 | NUR ---
PT STATES SHE SLEPT OK EXCEPT HAVING TO GO TO BATHROOM. DENIES ANY NEEDS.
--- NOTE | 2016-10-02 07:30 | NUR ---
RESTING QUIETLY IN BED. CALL LIGHT IN REACH
--- NOTE | 2016-10-02 08:30 | NUR ---
PATIENT REAMIAINS IN ISOLATION FOR C-DIFF. HELPED TO BATHROOM. INCT OF LOOSE STOOLS.
--- NOTE | 2016-10-02 12:09 | NUR ---
PATIENT ALERT/ORIENT. HAS SOME SHORT TERM MEMORY LOSS. PATIENT HELPED UP TO THE BATHROOM. USING WHEELED WALKER.
--- NOTE | 2016-10-02 14:53 | NUR ---
VISITING IN PATIENTS ROOM. ISOLATION PRECAUSIONS FOLLED.
--- NOTE | 2016-10-02 15:09 | NUR ---
PATIENT WALKING AROUND ROOM WITH WHEELED WALKER. STEADY GAIT. PATIENT HAS SIGNED A BED/CHAIR ALARM WAVIOR
--- NOTE | 2016-10-02 17:15 | NUR ---
PATIENT SITTING UP IN CHAIR AT BEDSIDE. REAMINS IN ROOM. VOICES NO NEEDS AT THIS TIME.
[2016-10-02 18:54] VITALS: BP 136/73
--- NOTE | 2016-10-02 19:30 | NUR ---
SITTING UP AT BEDSIDE IN RECLINER. PRESENT SEATED BESIDE HER. BOT ARE WATCHING t-Art GAME.
--- NOTE | 2016-10-02 20:05 | NUR ---
REMAINS UP IN RECLINER WATCHING TV WITH .
--- NOTE | 2016-10-02 21:30 | NUR ---
ASSISTED PATIENT UP TO BR AND BACK TO BED. PATIENT REQUIRED A FRESH BRIEF DUE TO SMALL URINE INCONTINENCE. PROVIDED HER WITH SAME. ASSISTED HER TO CHANGE BRIEF AND PUT SCRUB BOTTOMS BACK ON.
--- NOTE | 2016-10-02 22:20 | NUR ---
AFTER ESCORTING PATIENT'S TO [facility] (WAS UNABLE TO REMEMBER INSTRUCTIONS I GAVE HIM), I RETURNED TO ASSESS PATIENT AND DELIVER HER HS MEDS. PATIENT DENIES NEEDS. REDNESS TO BUTTOCKS AND COCCYX NOTED THE NIGHT OF THE 2ND HAS IMPROVED REVEALING WHAT APPEARS TO BE A FINE RASH OVER A 4" AREA OVER AREA SURROUNDING COCCYX. IT IS ONLY PINK, AND BLANCHES EASILY. APPLIED NEWLY-ORDERED MYCOSTATIN CREAM. PATIENT HAS NO COMPLAINTS AT THIS TIME.
--- NOTE | 2016-10-03 00:10 | NUR ---
ASSISTED PATIENT UP TO BR TO URINATE, AND THEN BACK TO BED. DENIES FURTHER NEEDS. BED ALARM IS REARMED.
--- NOTE | 2016-10-03 01:55 | NUR ---
PATIENT WAS ASSISTED TO AMBULATE, SBA WITH R/W, TO BR TO URINATE, AND THEN BACK TO BED. DENIES FURTHER NEEDS.
--- NOTE | 2016-10-03 05:00 | NUR ---
PATIENT TOILETED AND DRESSED WHILE ON BR COMMODE. CHANGED BRIEF AND PJ'S. DENIES FURTHER NEEDS.
--- NOTE | 2016-10-03 05:45 | NUR ---
IN BED, EYES CLOSED. RESPIRATIONS UNLABORED.
[2016-10-03 05:56] LABS: BASOPHILS 0.6 % (0.0-2.0); EOSINOPHILS 5.9 % (0-7); HEMOGLOBIN 10.9 g/dL (12-16); LYMPHOCYTES 46.6 % (15-50); MCH 31.3 pg (26.0-34.0); MCHC 34.1 g/dL (31.0-37.0); MEAN PLATELET VOLUME 10.7 fL (7.4-10.4); MONOCYTES 17.2 % (2-11); NEUTROPHILS 29.7 % (40-80); PLATELET COUNT 196 10x3/uL (130-400); RBC 3.48 10x6/uL (4.00-5.40); RDW 14.3 % (11.5-14.5); WBC 3.4 10x3/uL (4.8-10.8)
[2016-10-03 06:30] LABS: CALC OSMOLALITY 281 mosm/kg (275-300); CALCIUM 9.2 mg/dL (8.5-10.1); CARBON DIOXIDE 23.3 mmol/L (21.0-32.0); CHLORIDE - SERUM 106 mmol/L (98-107); CREATININE - SERUM 0.7 mg/dL (0.6-1.3); GLUCOSE 94 mg/dL (74-106); POTASSIUM - SERUM 3.9 mmol/L (3.5-5.1); SODIUM 140 mmol/L (136-145); UREA NITROGEN 20 mg/dL (7-18); eGFR NON AFRICAN AMERICAN 85 mL/min (90-120)
[2016-10-03 08:00] VITALS: BP 102/38
--- NOTE | 2016-10-03 08:00 | NUR ---
SHIFT ASSMT COMPLETED.BREAKFAST MEAL GIVEN.CL IN REACH.
--- NOTE | 2016-10-03 12:00 | NUR ---
RETURNED TO ROOM AFTER THERAPY;JASPREET WELL.SITTING IUP FOR LUNCH.
--- NOTE | 2016-10-03 16:00 | NUR ---
SITTING UP IN CHAIR. VISITING.CL IN REACH.JASPREET SHOWER TAKEN.
[2016-10-03 18:19] VITALS: BP 120/64
--- NOTE | 2016-10-03 19:25 | NUR ---
SITTING UP IN RECLINER AT BEDSIDE AFTER TOILETING RECENTLY AT [facility]. ASSISTED PATIENT PRIOR TO RECENT DEPARTURE FROM THE UNIT.
--- NOTE | 2016-10-03 21:20 | NUR ---
ASSISTED PATIENT TO AMBULATE TO BR AND BACK TO BED. ASSESSMENT AND HS MEDS WERE THEN COMPLETED. C/O PAIN LEVEL OF 4/10. GAVE HER TYLENOL 650MG PO.
--- NOTE | 2016-10-03 22:00 | NUR ---
RESTING IN BED, EYES CLOSED. APPEARS COMFORTABLE.
--- NOTE | 2016-10-03 23:45 | NUR ---
ASSISTED PATIENT TO AMBULATE TO BR WITH SBA DN R/W. RETURNED ALONE TO BED WHIL I WAS ASSISTING ANOTHER PATIENT. DID NOT USE BATHROOM CALL LIGHT TO ASK FOR ASSIST BACK TO BED. PATIENT CHANGED HER PJ TOP SHE WAS TOO WARM. REMINDED HER TO CALL FOR ASSIST AND NOT TO ATTEMPT UP ALONE. BED ALARM IS REARMED.
--- NOTE | 2016-10-04 02:10 | NUR ---
ASSISTED PATIENT TO AMBULATE TO BR TO URINATE, USING SBA AND R/W FOR MOBILITY, AND THEN BACK TO BED AFTER TOILETING. DENIES FURTHER NEEDS.
--- NOTE | 2016-10-04 04:45 | NUR ---
RESTING IN BED, EYES CLOSED AUDIBLE RESPIRATIONS ARE UNLABORED.
--- NOTE | 2016-10-04 05:50 | NUR ---
ASSISTED PATIENT UP TO BR TO URINATE AND CHANGE HER PULL-UP BRIEF AND THEN BACK TO BED. SAYS SHE WILL DO THERAPY IN CURRENT PJ'S.
[2016-10-04 08:00] VITALS: BP 167/78
--- NOTE | 2016-10-04 08:00 | NUR ---
Shift assmt completed.Denies needs.Assisted to bathrm and to chair.Breakfast given.
--- NOTE | 2016-10-04 10:00 | NUR ---
PLANS TO DISCHARGE HOME TODAY. NOTIFIED.
--- NOTE | 2016-10-04 10:17 | NUR ---
PATIENT DISCHARGING HOME WITH FAMILY. [facility] WILL PROVIDE NURSING, PT, OT, SPEECH. PATIENT HAS ROLLING WALKER AND WHEELCHAIR. APPOINTMENTS: DR. LEBLANC 10/10/16 @ 9:30, DR. VELÁSQUEZ 10/17/16 @ 3:00, DR. DÍAZ OFFICE WILL CALL WITH AN APPOINTMENT. PATIENT CHOICE FOR HOME HEALTH AND [facility] FORM SIGNED, EXPLAINED AND FILED IN CHART
--- NOTE | 2016-10-04 12:50 | NUR ---
Nutrition Follow Up: Pt reported that she is doing well. She said that her appetite remains poor but she is trying to eat as much as she can. Pt is eating 75% meal avg on a Regular diet. +BM 10/03/16. Labs noted. Meds noted including Questran. Noted pt is to d/c today. RD following.
[2016-10-04] MEDS ORDERED: ELIQUIS5 MG PO (13:07)
--- NOTE | 2016-10-04 14:00 | NUR ---
VISITED.WILL D/C HOME.REVIEWED MEDS AND HOME CARE WITH PT AND WITH STATED UNDERSTANDING.
--- NOTE | 2016-11-09 12:30 | DS ---
PATIENT:YAMINI ZHAO :37 MEDICAL RECORD: [id number] DISCHARGE SUMMARY ADMISSION DATE: 09/21/16 DISCHARGE DATE: 10/04/16 This is a discharge dated 10/04/2016 from inpatient rehab. PRIMARY DIAGNOSIS: Decreased functional ability and ability to provide activities of daily living secondary to prolonged hospitalization for management of sepsis and Gram-negative bacteremia, in shock. SECONDARY DIAGNOSES: 1. Pyelonephritis. 2. Clostridium difficile colitis. 3. Chronic obstructive pulmonary disease. 4. Urinary tract infection. 5. Acute kidney injury. 6. Anemia. 7. Coronary artery disease. 8. Osteoarthritis. 9. Neuropathy. 10. Glaucoma. 11. Mycobacterium avium infection. 12. Gastroesophageal reflux disease. 13. Aspergillosis. 14. Hypertension. 15. Mitral valve prolapse. 16. Herpes simplex. 17. Left lower extremity deep venous thrombosis. HOSPITAL COURSE: Full H&P is located elsewhere on the chart on this 81-year-old female who was admitted to inpatient rehab for physical therapy and occupational therapy to improve gait, transfer skills, bed mobility, and activities of daily living. She was evaluated by PT and OT and their plans of care were followed. She required fpc care for observation and assessment, medication administration. She remained on updrafts for respiratory support as well as above. HOME MEDICATIONS: She also required speech therapy, was evaluated by them. She was on vancomycin for antibiotic coverage. She developed some pain in the left calf. Ultrasound was done with findings of a left lower extremity DVT. She was started on anticoagulation. She was cooperative with therapies, progressing towards goals. Case management was involved for discharge planning. She was considered stable for discharge on 10/04/2016. DISCHARGE MEDICATIONS: As per discharge medication reconciliation. DISCHARGE DISPOSITION: The patient is discharged home. She will continue her current diet and level of activity. She will follow up with primary care in 7-10 days. She will have home health for nursing, PT, OT and therapy. TRANSINT:[id number] Voice Confirmation ID: [id number] DOCUMENT ID: [id number] Dictated By: CURTIS HAYS I have interviewed/examined the above patient and agree with these documented DISCHARGE SUMMARY REPORT [id number] YAMINI ZHAO findings. ANA LUISA VELASCO MD at 1230 at 1231 CC: [id number] DICTATION DATE: 11/05/16 1321 STERILE PROC TECH: 11/06/16 0154 DIS IN 10/04/16 [facility] [address] [place] [address]
== END 2016-10-04 11:15 | disposition home health service (06) | DRG 871 ==
LOC: D.REHAB 14:25
PROVIDERS: ADMIT Emergency Medicine
DX: A41.9 Sepsis, unspecified organism (principal); R65.21 Severe sepsis with septic shock; N17.9 Acute kidney failure, unspecified; N12 Tubulo-interstitial nephritis, not specified as acute or chronic; N39.0 Urinary tract infection, site not specified; J44.1 Chronic obstructive pulmonary disease with (acute) exacerbation; E87.4 Mixed disorder of acid-base balance; E46 Unspecified protein-calorie malnutrition; B00.9 Herpesviral infection, unspecified; B96.89 Other specified bacterial agents as the cause of diseases classified elsewhere; R91.8 Other nonspecific abnormal finding of lung field; D72.819 Decreased white blood cell count, unspecified; D64.9 Anemia, unspecified; D69.6 Thrombocytopenia, unspecified; I10 Essential (primary) hypertension; R51 Headache; R53.81 Other malaise; I25.10 Atherosclerotic heart disease of native coronary artery without angina pectoris; M19.90 Unspecified osteoarthritis, unspecified site; G62.9 Polyneuropathy, unspecified; H40.9 Unspecified glaucoma; R32 Unspecified urinary incontinence; R41.3 Other amnesia; Z68.20 Body mass index [BMI] 20.0-20.9, adult

== ENCOUNTER → 2016-12-02 10:04 | Outpatient (CLI) | payer MEDICARE, BC ==
[2016-09-29 09:42] VITALS: BMI 24.4
[~2016-12-02 10:04] MED LIST changes: +ELIQUIS5 MG PO
== END | disposition home or self-care (01) ==
LOC: D.US 10:00
DX: I82.401 Acute embolism and thrombosis of unspecified deep veins of right lower extremity (principal)

== ENCOUNTER → 2016-12-05 15:05 | Outpatient (CLI) | payer MEDICARE, BC | END | disposition home or self-care (01) | LOC: D.RAD 15:05 | DX: D72.819 Decreased white blood cell count, unspecified (principal); R60.0 Localized edema ==

== ENCOUNTER 2017-02-25 11:38 | Emergency (ER) | payer MEDICARE, BC ==
[2016-09-29 09:42] VITALS: BMI 24.4
== END 2017-02-25 13:23 | disposition home or self-care (01) ==
LOC: D.ER 11:38
DX: S86.911A Strain of unspecified muscle(s) and tendon(s) at lower leg level, right leg, initial encounter (principal); X58.XXXA Exposure to other specified factors, initial encounter; Y93.89 Activity, other specified; Y92.89 Other specified places as the place of occurrence of the external cause; K21.9 Gastro-esophageal reflux disease without esophagitis; I10 Essential (primary) hypertension

== ENCOUNTER 2017-08-30 10:01 | Day surgery (SDC) | payer MEDICARE, BC ==
[~2017-08-30] VITALS: Ht 167.6 cm; Wt 59.0 kg
--- NOTE | ~2017-08-30 | HP ---
PATIENT: YAMINI ZHAO MEDICAL RECORD: [id number] ACCOUNT: [id number] LOCATION:[facility] : 37 ADMISSION DATE: 08/30/17 HISTORY AND PHYSICAL EXAMINATION CHIEF COMPLAINT: Polyp. HISTORY: The patient has had an ileocecal valve polyp. It was located on the upper lip of the ileocecal valve. We plan for colonoscopy and then polypectomy of any regrowth of the polyp utilizing the argon plasma sales review clerk. The risks, possible complications, and alternatives to the procedure were explained to the patient. She elects to proceed. Interestingly, she has been having some suprapubic pain and left lower quadrant pain. 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 ALLERGIES: BEXTRA, NIACIN, ERYTHROMYCIN, KETOROLAC. HOME MEDICINES: Please see the nursing list. PHYSICAL EXAMINATION: GENERAL: The patient does not appear acutely ill. She does not appear chronically ill. VITAL SIGNS: Reviewed. The entire physical examination was performed with the presence of female nurse. EARS: External ears appear normal. EYES: Extraocular movements are intact. NECK: Trachea is midline. CHEST: No intercostal retractions. PULMONARY: Nonlabored. No stridor. ABDOMEN: Left lower quadrant tenderness and suprapubic tenderness. 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 PLAN: Colonoscopy with the argon plasma sales review clerk. TRANSINT:[id number] Voice Confirmation ID: [id number] DOCUMENT ID: [id number] ROBINSON MCKEON MD at 0938 CC: EMMANUEL DÍAZ MD, PENNIE NUNEZ M.D., ROBINSON LEBLANC DO [id number] MD DICTATION DATE: 08/30/17 1542 NIGHT SHIFT SUPERVISOR: 08/30/17 1722 [facility] 08/30/17 [id number] [place] [address]
--- NOTE | ~2017-08-30 | OP ---
PATIENT NAME: YAMINI ZHAO MEDICAL RECORD: [id number] :37 LOCATION:[facility] ADMISSION DATE: SURGEON: ROBINSON MCKEON MD DATE OF OPERATION: 08/30/2017 PREOPERATIVE DIAGNOSIS: History of ileocecal valve polyp. POSTOPERATIVE DIAGNOSES: History of ileocecal valve polyp with significant regrowth of the ileocecal valve polyp, also secondary cecal polyp was noted, which was a flat polyp and was clearly being seen with narrow band imaging and this was removed utilizing the hot biopsy forceps polypectomy technique. PROCEDURES: 1. Total colonoscopy to cecum. 2. Colonic polypectomy at the ileocecal valve polyp with argon plasma freight broker, which is a radiofrequency ablation of a benign colonic process. 3. Hot biopsy forceps polypectomy of the flat polyp. SURGEON: Robinson Mckeon MD EROSION CONTROL SPECIALIST: None. BLOOD LOSS: Minimal. ANESTHESIA: General. COMPLICATIONS: None. The risks, possible complications, and alternatives to the procedure were explained to the patient. She elects to proceed. The discussion specifically included, but was not limited to, bleeding requiring emergency reoperation, infection, the fact that the polyp could generate into a malignancy and the possible need for additional operation for resection. OPERATIVE COURSE: The patient was conveyed to the operating room electively on 08/30/2017. General anesthesia was induced by the anesthesia staff. The patient was placed in the Romo position. A digital rectal examination was performed. A colonoscope was inserted to the cecum. It was slowly withdrawn. The prep was adequate. I irrigated and aspirated extensively. One hot biopsy forceps polypectomy was performed. Cold endoscopic biopsies were performed of the ileocecal valve polyp and then the polypectomy was completed utilizing ablation of the polypoid base with the argon plasma freight broker. It should be noted that the patient had a firm base to the polyp. This was a bilobed polyp. The endoscope was then withdrawn slowly. The pullback was greater than an 18-minute pullback. I dragged the folds. I utilized direct imaging as well as narrow band imaging. A retroflexed view was obtained in the rectum. I then unretroflexed the scope and removed it under direct vision. I will see the patient back in my office in 2-3 weeks. I will plan for another colonoscopy utilizing the argon plasma freight broker in 1 year. TRANSINT:[id number] Voice Confirmation ID: [id number] DOCUMENT ID: [id number] OPERATIVE REPORT [id number] YAMINI ZHAO ROBERT MD at 0938 CC: EMMANUEL DÍAZ MD, PENNIE NUNEZ M.D., ROBINSON LEBLANC DO [id number] MD DICTATION DATE: 08/30/17 1538 CAREER PLACEMENT SPECIALIST: 08/30/17 [facility] [place] [id number]
[~2017-08-30 10:01] MED LIST changes: +VITAMIN D250000 UNIT PO; -VITAMIN D3400 UNI1 PO
[2017-08-30 11:18] LABS: BASOPHILS 0.5 % (0-2); EOSINOPHILS 2.3 % (0-7); HEMATOCRIT 39.5 % (36.0-48.0); HEMOGLOBIN 13.5 g/dL (12-16); IMMATURE GRANULOCYTES 0.2 % (0-5); LYMPHOCYTES 29.3 % (15-50); MCH 31.5 pg (26.0-34.0); MCHC 34.2 g/dL (31.0-37.0); MCV 92.1 fL (80.0-100.0); MEAN PLATELET VOLUME 11.2 fL (7.4-10.4); MONOCYTES 13.8 % (2-11); NEUTROPHILS 53.9 % (40-80); PLATELET COUNT 158 10x3/uL (130-400); RBC 4.29 10x6/uL (4.00-5.40); RDW 13.1 % (11.5-14.5); WBC 4.4 10x3/uL (4.8-10.8)
[2017-08-30 11:26] LABS: ANION GAP 15.7 mmol/L (8-16); CALCIUM 9.2 mg/dL (8.5-10.1); CARBON DIOXIDE 24.5 mmol/L (21.0-32.0); CREATININE - SERUM 1.1 mg/dL (0.6-1.3); POTASSIUM - SERUM 4.2 mmol/L (3.5-5.1)
[2017-08-30 12:04] VITALS: BP 130/68; Ht 167.6 cm; Wt 59.0 kg
== END 2017-08-30 17:50 | disposition home or self-care (01) ==
LOC: D.PAN 10:01 → D.OPS 12:30 → D.PAN 12:30
PROVIDERS: Anesthesiology
DX: K63.5 Polyp of colon (principal); I25.10 Atherosclerotic heart disease of native coronary artery without angina pectoris; I10 Essential (primary) hypertension; I48.91 Unspecified atrial fibrillation; K21.9 Gastro-esophageal reflux disease without esophagitis; G47.30 Sleep apnea, unspecified; Z01.812 Encounter for preprocedural laboratory examination

== ENCOUNTER → 2018-12-04 19:33 | Outpatient (CLI) | payer MEDICARE, BC ==
[2017-08-30 12:04] VITALS: BMI 21.0
== END | disposition home or self-care (01) ==
LOC: D.LABREF 19:33
PROVIDERS: ATTEND Orthopaedic Surgery
DX: M17.11 Unilateral primary osteoarthritis, right knee (principal); Z11.8 Encounter for screening for other infectious and parasitic diseases